=== PATIENT | female | born 1940 | race Caucasian/White ===

== ENCOUNTER 2023-07-03 17:19 | Inpatient (IN) | payer MEDICARE, OTHER, SELFPAY ==
[2023-07-03 14:38] VITALS: BP 155/88
[2023-07-03] MEDS: FLAGYL 500 MG 100 IV (15:24)
[2023-07-03] MEDS: ROCEPHIN 2000 MG IV (15:24)
[2023-07-03 15:27] LABS: % Basophils 0.4 % (0-2); % Eosinophils 0.3 % (0-6); % Immature Granulocytes 0.6 % (0-0.5); % Lymphocytes 9.1 % (20.5-51.1); % Monocytes 7.3 % (1.7-9.3); % Neutrophils 82.3 % (42.2-75.2); Absolute Immature Granulocytes 0.1 10^3/uL (0-0.05); Absolute Lymphocytes 0.8 10^3/uL (1.2-3.4); Absolute Monocytes 0.7 10^3/uL (0.1-0.6); Absolute Neutrophils 7.4 10^3/uL (1.4-6.5); Hematocrit 33.1 % (37.0-47.0); Hemoglobin 11.9 g/dL (12.0-16.0); Mean Corpuscular Hgb 32.2 pg (27.0-31.0); Mean Corpuscular Volume 89.7 fL (81.0-99.0); Mean Platelet Volume 9.4 fL (7.4-10.4); Nucleated Red Blood Cells % 0 %; Platelet Count 276 10^3/uL (130-400); Red Blood Cell Count 3.69 10^6/uL (4.20-5.40); Red Cell Dist. Width 12.7 % (11.5-14.5)
[2023-07-03 15:35] LABS: Erythrocyte Sed Rate 59 mm/hour (0-20)
[2023-07-03 15:45] LABS: Blood Urea Nitrogen 27 mg/dl (7-17); Calcium 8.9 mg/dl (8.4-10.2); Carbon Dioxide 23 mmol/L (22-30); Chloride 93 mmol/L (98-107); Glucose 106 mg/dl (70-99); Potassium 3.7 mmol/L (3.5-5.1); Sodium 126 mmol/L (135-145); eGFR > 60.00
--- NOTE | 2023-07-03 16:41 | ED.SKININJ ---
HPI-Injury
General
Chief Complaint: Bite
Source: patient and family
Exam Limitations: none
Time Seen by Provider: 07/03/23 14:56
Nursing documentation reviewed up to this point in time: agreed with
Travel History
Have you had any contact with someone who has COVID-19?: No
Do you have any symptoms of coronavirus? Fever > 100 degrees, chills, cough, shortness of breath, sore throat, loss of taste or smell, muscle aches, or headache?: No
History of Present Illness-Injury
Is this injury a work related problem?: No
Is pt an associate of [facility]?: No
Initial Injury comments:
83-year-old female with past medical history of congestive heart failure hypertension hyperlipidemia anxiety previous stroke presenting to the emergency department today with concerns of ongoing swelling redness and discomfort to the right wrist.
She was bit by her cat 19 days ago initially treated with Augmentin no improvement saw her primary care doctor 4 days ago for ongoing redness and swelling started on doxycycline and clindamycin has been taking this over the past 4 days without any
improvement worsening redness and swelling over the past day or so denies fevers but has had increasing swelling and discomfort. Denies nausea vomiting
Past History
Past History
ED Past Medical History: CHF, CVA, GERD, HTN, Hypercholesterolemia, Valvular disease (Mitral regurgitation), Hypothyroidism and Other (spinal stenosis, herniated L2-3-4-5, IBS, osteoarthritis,)
ED Past Surgical History: Bowel resection (Small bowel resection), Cholecystectomy, Gynecological (Hysterectomy), Orthopedic (L2-L5 laminectomy, left wrist ganglion cyst, L2-L4 fusion) and Other (Hemorrhoidectomy, left endarterectomy, excision of
basal cell carcinoma nose 2000, Unbilical hernia)
Social History
Tobacco: Non-smoker
Alcohol: None
Personal:
Living: with family (son lives with her)
Employment: Retired
Family History
Family History: Other (Noncontributory)
Review of Systems
Review of Systems
Allergies reviewed?: Yes
All Other Systems: ROS reviewed and negative except as documented in HPI and ROS
Phy Exam
Physical Exam
Physical Exam:
GENERAL: Alert , in no apparent distress
EYE: pupils equal and reactive
NECK: Supple, no significant adenopathy.
ENT: o/p clr, mmm.
CARDIAC: Regular rate and rhythm .
LUNGS: Clear breath sounds bilaterally, no acute respiratory distress, no wheezes/rales/rhonchi
ABDOMEN: Soft, without focal tenderness, no r/g, no cvat
NEUROLOGICAL: Alert and oriented, no focal neuro deficits
SKIN: Redness and swelling without fluctuance or induration to the right wrist and into the forearm roughly half of the forearm on th the ulnar aspect does cross the joint to the hand no obvious breaks in the skin e and dry, skin intact.
MUSCULOSKELETAL: No edema, well perfused.
PSYCH: Normal and appropriate interaction.
Course
Orders/Labs/Results
Orders:
Orders
07/03/23 15:05
CefTRIAXone [Rocephin] 1,000 mg IV NOW STA
CR Wrist - Right Min 3 Views Urgent
Comment:
Reason For Exam: infection for 2 weeks
07/03/23 15:07
CefTRIAXone [Rocephin] 2,000 mg IV NOW STA
MetroNIDAZOLE 500 MG/100 ML [Flagyl 500 mg] 100 ml IV NOW
07/03/23 15:08
Splints/Slings/Crut- Treatment ONCE
Location: Right
07/03/23 15:18
BMP [Basic Metabolic Panel] Urgent
CBC/With Diff [Complete Blood Count/With Diff] Urgent
CRP [C-Reactive Protein] Urgent
ESR [Erythrocyte Sed Rate] Urgent
07/03/23 16:18
Blood Culture Q30M
GERMÁN Source: Blood/Venous
Specimen Description:
Blood Culture Q30M
GERMÁN Source: Blood/Venous
Specimen Description:
07/03/23 16:37
0.9% Sodium Chloride 1000 ml [Nss] 1,000 ml IV BOLUS
Abnormal Lab Results
07/03/23
15:18
RBC 3.69 L 10^6/uL
(4.20-5.40)
Hgb 11.9 L g/dL
(12.0-16.0)
Hct 33.1 L %
(37.0-47.0)
MCH 32.2 H pg
(27.0-31.0)
Abs Immat Gran (auto) 0.1 H 10^3/uL
(0-0.05)
Absolute Neuts (auto) 7.4 H 10^3/uL
(1.4-6.5)
Absolute Lymphs (auto) 0.8 L 10^3/uL
(1.2-3.4)
Absolute Monos (auto) 0.7 H 10^3/uL
(0.1-0.6)
Immature Gran % 0.6 H %
(0-0.5)
Neutrophils % 82.3 H %
(42.2-75.2)
Lymphocytes % 9.1 L %
(20.5-51.1)
ESR 59 H mm/hour
(0-20)
Sodium 126 L mmol/L
(135-145)
Chloride 93 L mmol/L
(98-107)
BUN 27 H mg/dl
(7-17)
Glucose 106 H mg/dl
(70-99)
C-Reactive Protein 70.20 H mg/L
(0.0-10.00)
07/03/23 15:18
07/03/23 15:18
Vital Signs
Initial and Last Documented VS:
Initial Vital Signs
Temp Pulse Resp BP Pulse Ox
98.5 F 84 18 155/88 95
07/03/23 14:38 07/03/23 14:38 07/03/23 14:38 07/03/23 14:38 07/03/23 14:38
Last Documented Vital Signs
Temp Pulse Resp BP Pulse Ox
98.5 F 84 18 155/88 95
07/03/23 14:38 07/03/23 14:38 07/03/23 14:38 07/03/23 14:38 07/03/23 14:38
MDM/Problems Addressed
MDM/Problems Addressed:
83-year-old female presenting to the emergency department today with concerns of worsening redness and swelling despite multiple antibiotic treatments at home after being bit by a cat. Here she is generally well-appearing in no acute distress
normal vital signs does have significant redness and swelling to the right wrist plan to start IV antibiotics and bring in due to failed outpatient antibiotics. Labs were obtained which did show a low sodium level was started on fluids.
Otherwise\\admitted in stable condition
*Critical Care Note
Total Time (30-74mins, 75-104mins- exclusive of procedures): Not Applicable
ED Attending Note
-
Portions of this chart may have been created with voice recognition software.� Occasional wrong word or��sound alike� substitutions may have occurred due to the inherent limitations of voice recognition software.
Discharge Plan
Departure
Patient Disposition: Admit
Date of Disposition: 07/03/23
Time of Disposition: 16:43
Admit to: Med/Surg
Admit to doctor: Rozina
Presentation/result/management discussed w/ accepting MD/DO: Hospitalist
Patient with high blood pressure during this ER visit?: No
Condition: Good
Covid-19: Not Applicable
Discharge Problem:
Cat bite of right forearm with infection
Prescriptions:
No Action
famotidine 40 MG tablet
40 mg PO DAILY
aspirin 81 MG tablet,delayed release (DR/EC)
81 mg PO DAILY
amitriptyline 50 MG tablet
50 mg PO HS
alprazolam 0.25 MG tablet
0.25 mg PO BID
Patient Comments:
1-2X DAY
pantoprazole 40 MG tablet,delayed release (DR/EC)
40 mg PO DAILY
labetalol 300 MG tablet
450 mg PO BID
Patient Comments:
1-2X DAY
losartan [Cozaar] 100 MG tablet
100 mg PO DAILY
gabapentin 300 MG capsule
300 mg PO TID
polyethylene glycol 3350 17 GRAMS powder in packet
17 grams PO DAILY
levothyroxine 25 MCG capsule
25 mcg PO DAILY
cyanocobalamin (vitamin B-12) 1,000 MCG tablet
1,000 mcg PO DAILY
ferrous sulfate [Feosol] 325 MG tablet
325 mg PO DAILY
doxycycline hyclate 100 MG capsule
100 mg PO Q12 Qty: 8 0RF
Patient Comments:
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
metolazone 2.5 mg Tablet
2.5 mg PO WE
atorvastatin [Lipitor] 80 mg Tablet
80 mg PO QPM
torsemide 20 mg Tablet
40 mg PO DAILY
clindamycin HCl 300 mg Capsule
300 mg PO TID
hydrocodone-acetaminophen 10-325 mg Tablet
1 tab PO TIDPRN PRN (Reason: severe pain)
cholecalciferol (vitamin D3) [Vitamin D3] 25 mcg (1,000 unit) Tablet
25 mcg PO DAILY
potassium chloride 20 mEq Tablet Extended Release
20 meq PO DAILY
Referrals:
Hebert Rogers MD [Family Provider] -
Interventions
Interventions:
*Risk Screen - Suicide Last Done: 07/03/23 15:43
*General Assessment Last Done: 07/03/23 14:38
*Neglect/Abuse Screening Last Done: 07/03/23 15:43
*ED COVID-19 Vaccine History Last Done: 07/03/23 14:38
ED-Skin Assessment Last Done: 07/03/23 15:42
--- NOTE | 2023-07-03 17:18 | HPS.HSE ---
Family Physician
-
Family Physician: Hebert Rogers
Chief Complaint
-
wrist swelling and pain
History of Present Illness
83-year-old female with past medical history of diastolic heart failure, hypertension, chronic normocytic anemia, CVA, GERD, hypercholesterolemia, hypothyroidism, spinal stenosis, IBS, small bowel resection presenting with ongoing swelling and
redness and discomfort of the right wrist. She was bit by her cat 19 days ago initially treated with course of Augmentin without any improvement and saw her primary care physician 4 days ago persistent symptoms so she was started on doxycycline and
clindamycin which she has been taking for the past 4 days with worsening of redness and swelling over the past day. Denies fevers or chills. Denies any discharge. Denies nausea or vomiting.
She did develop the feeling that her throat was closing up while on Augmentin.
She has also been having some chest congestion and cough over the past few days attributed to viral URI. She denies any shortness of breath or chest pain.
She denies smoking alcohol.
Medical History
Past Medical History
Past Medical History: Reports Other (diastolic heart failure, hypertension, chronic normocytic anemia, CVA, GERD, hypercholesterolemia, hypothyroidism, spinal stenosis, IBS, small bowel resection)
Past Surgical History: Reports Other (Bowel resection (Small bowel resection), Cholecystectomy, Gynecological (Hysterectomy), Orthopedic (L2-L5 laminectomy, left wrist ganglion cyst, L2-L4 fusion) and Other (Hemorrhoidectomy, left endarterectomy,
excision of basal cell carcinoma nose 2000, Unbilical hernia))
Social History
Tobacco: Non-smoker
Alcohol: None
Drug: None
Family History
Family History: Not pertinent
Allergies / Home Medications
Allergies reflects when Allergies were last updated in [employer].
Home Medications with original date entered in [facility]
Allergy/Medication List:
Allergies
Allergy/AdvReac Type Severity Reaction Status Date / Time
adhesive Allergy Rash Verified 07/03/23 14:40
erythromycin base Allergy Burning, Verified 07/03/23 14:40
[Erythromycin Base] itchy eyes
mold Allergy ITCHY EYES Verified 07/03/23 14:40
Penicillins Allergy Unknown Verified 07/03/23 14:40
polymyxin B Allergy Burning of Verified 07/03/23 14:40
eyes
SEASONAL Allergy ITCHY Uncoded 07/03/23 14:40
EYES,RUNNY
NOSE
Home Medications
alprazolam 0.25 mg tablet 0.25 mg PO BID anxiety 06/13/11
amitriptyline 50 mg tablet 50 mg PO HS Sleep 06/13/11
aspirin 81 mg tablet,delayed release 81 mg PO DAILY Blood clot prevention/tx 06/13/11
famotidine 40 mg tablet 40 mg PO DAILY Gastrointestinal issue 06/13/11
labetalol 300 mg tablet 450 mg PO BID Blood pressure 06/13/11
pantoprazole 40 mg tablet,delayed release 40 mg PO DAILY Gastrointestinal issue 06/13/11
losartan 100 mg tablet (Cozaar) 100 mg PO DAILY Blood pressure 07/07/16
gabapentin 300 mg capsule 300 mg PO TID Neurological Condition 10/01/18
cyanocobalamin (vitamin B-12) 1,000 mcg tablet 1,000 mcg PO DAILY Supplement 07/16/20
ferrous sulfate 325 mg (65 mg iron) tablet (Feosol) 325 mg PO DAILY Supplement 07/16/20
levothyroxine 25 mcg capsule 25 mcg PO DAILY Thyroid 07/16/20
polyethylene glycol 3350 17 gram oral powder packet 17 grams PO DAILY Congestion 07/16/20
doxycycline hyclate 100 mg capsule 100 mg PO Q12 #8 caps 07/18/20
atorvastatin 80 mg tablet (Lipitor) 80 mg PO QPM 07/03/23
cholecalciferol (vitamin D3) 25 mcg (1,000 unit) tablet (Vitamin D3) 25 mcg PO DAILY 07/03/23
clindamycin HCl 300 mg capsule 300 mg PO TID 07/03/23
hydrocodone 10 mg-acetaminophen 325 mg tablet 1 tab PO TIDPRN PRN severe pain 07/03/23
metolazone 2.5 mg tablet 2.5 mg PO WE 07/03/23
potassium chloride 20 mEq tablet,extended release 20 meq PO DAILY 07/03/23
torsemide 20 mg tablet 40 mg PO DAILY 07/03/23
Review of Systems
-
History Source: Patient
A 12 point ROS was completed and negative except as noted: Yes
Constitutional: Reports No Symptoms
EENT: Reports No Symptoms
Respiratory: Reports No Symptoms
Cardiac: Reports No Symptoms
Abdomen/GI: Reports No Symptoms
: Reports No Symptoms
Musculoskeletal: Reports No Symptoms
Skin: Reports See HPI
Neurological: Reports No Symptoms
Endocrine: Reports No Symptoms
Hematologic/Lymphatic: Reports No Symptoms
Psych: Reports No Symptoms
Physical Exam
Vital Signs
Vital Signs
Temp Pulse Resp BP Pulse Ox
98.5 F 84 18 155/88 95
07/03/23 14:38 07/03/23 14:38 07/03/23 14:38 07/03/23 14:38 07/03/23 14:38
Physical Exam
General: Well Developed, Well Nourished and No Apparent Distress
HEENT: NormoCephalic, Moist mucous membranes and Atraumatic
Respiratory: Clear
Cardiac: S1/S2 and Regular Rhythm; No Murmur or Rub
GI: Soft, Non Tender, Non Distended and Normal Bowel Sounds; No Organomegaly
Rectal: Deferred by Provider
Musculoskeletal: No Clubbing, No Cyanosis and No Edema
Skin: Other (right wrist tenderness, erythema and swelling ); No Rash
Neuro: Nonfocal/grossly intact
Laboratory Results
-
07/03/23 15:18
07/03/23 15:18
Data Reviewed
-
Lab Data: Labs Reviewed by me
Old Records: Reviewed
Impression/Plan
-
IMPRESSION:
PLAN:
# Right wrist cellulitis secondary to cat bite
-Wrist x-ray pending
-Blood cultures pending
-IV fluids given in ER
-Cefepime and Flagyl given penicillin allergy
# Congestion secondary to viral URI
-benzonatate as needed
# Chronic asymptomatic hyponatremia secondary to metolazone
-Fluid restriction 40 ounces
Chronic HFpEF
-Continue torsemide
-Continue metolazone
Essential hypertension
-Continue losartan, labetalol
History of CVA status post carotid endarterectomy
-Continue aspirin, statin
GERD
-Continue Protonix, Pepcid
Hypercholesterolemia
Hypothyroidism
-Continue levothyroxine
Chronic normocytic anemia
-Continue iron supplement
Spinal stenosis
-Continue Vicodin, gabapentin
IBS
History of small bowel resection
Anxiety/depression
-Continue Xanax, amitriptyline
Full code
DVT prophylaxis�heparin
Cardiac diet
[2023-07-03 18:31] VITALS: BMI 22.4
[2023-07-03 18:32] VITALS: BP 176/93; BMI 23.0
[2023-07-03] MEDS: HEPARIN 5000 UNITS SC (20:07)
[2023-07-03] MEDS: LIPITOR 80 MG PO (20:07)
[2023-07-03] MEDS: TRANDATE 450 MG PO (20:08)
[2023-07-03] MEDS: XANAX 0.25 MG PO (20:10)
[2023-07-03] MEDS: ROBITUSSIN 100 MG PO (20:26)
[2023-07-03] MEDS: NSS 1000 IV (20:26)
[2023-07-03] MEDS: ELAVIL 50 MG PO (22:23)
[2023-07-03] MEDS: MAXIPIME 1000 MG IV (22:23)
[2023-07-03] MEDS: STERILE WATER FOR INJECTION 10 ML IV (22:23)
[2023-07-03] MEDS: NEURONTIN PO ×2 (22:23→22:25)
[2023-07-03 23:08] VITALS: BP 159/65
[2023-07-04] MEDS: FLAGYL 500 MG 100 IV ×4 (00:43→23:53)
[2023-07-04] MEDS: NORCO 7.5/325 1 TABLET PO ×2 (01:23→08:16)
[2023-07-04 06:00] VITALS: BMI 22.4
[2023-07-04 06:08] LABS: % Basophils 0.4 % (0-2); % Eosinophils 0.3 % (0-6); % Immature Granulocytes 0.6 % (0-0.5); % Lymphocytes 17.4 % (20.5-51.1); % Monocytes 10.2 % (1.7-9.3); % Neutrophils 71.1 % (42.2-75.2); Absolute Lymphocytes 1.2 10^3/uL (1.2-3.4); Absolute Monocytes 0.7 10^3/uL (0.1-0.6); Absolute Neutrophils 4.8 10^3/uL (1.4-6.5); Hematocrit 31.6 % (37.0-47.0); Hemoglobin 11.1 g/dL (12.0-16.0); Mean Corp Hgb Conc. 35.1 g/dL (33.0-37.0); Mean Corpuscular Hgb 31.7 pg (27.0-31.0); Mean Corpuscular Volume 90.3 fL (81.0-99.0); Mean Platelet Volume 9.9 fL (7.4-10.4); Nucleated Red Blood Cells % 0 %; Platelet Count 272 10^3/uL (130-400); Red Cell Dist. Width 12.5 % (11.5-14.5); White Blood Cell Count 6.8 10^3/uL (4.8-10.8)
[2023-07-04] MEDS: SYNTHROID 25 MCG PO (06:15)
[2023-07-04 06:37] LABS: ALT (SGPT) < 10 U/L (0-35); AST (SGOT) 20 U/L (14-36); Albumin 3.1 g/dl (3.5-5.0); Alkaline Phosphatase 112 U/L (38-126); Blood Urea Nitrogen 22 mg/dl (7-17); Calcium 8.8 mg/dl (8.4-10.2); Carbon Dioxide 22 mmol/L (22-30); Chloride 96 mmol/L (98-107); Estimated Creatinine Clearance 39 ml/min; Glucose 95 mg/dl (70-99); Potassium 3.6 mmol/L (3.5-5.1); Sodium 131 mmol/L (135-145); Total Bilirubin 0.4 mg/dl (0.2-1.3); Total Protein 5.8 g/dl (6.3-8.2); eGFR > 60.00
[2023-07-04 07:30] VITALS: BP 172/84
[2023-07-04] MEDS: DEMADEX 40 MG PO (08:03)
[2023-07-04] MEDS: XANAX 0.25 MG PO ×2 (08:03→20:14)
[2023-07-04] MEDS: NEURONTIN 300 MG PO ×2 (08:03→17:34)
[2023-07-04] MEDS: PROTONIX 40 MG PO (08:03)
[2023-07-04] MEDS: PEPCID PO ×2 (08:03→08:23)
[2023-07-04] MEDS: TRANDATE 450 MG PO ×2 (08:04→20:14)
[2023-07-04] MEDS: ASPIR LOW (ENTERIC COATED) 81 MG PO (08:04)
[2023-07-04] MEDS: VITAMIN B-12 1000 MCG PO (08:05)
[2023-07-04] MEDS: COZAAR 100 MG PO (08:05)
[2023-07-04] MEDS: KCL PO ×2 (08:05→08:29)
[2023-07-04] MEDS: VITAMIN D3 (cholecalciferol) 25 MCG PO (08:05)
[2023-07-04] MEDS: FEOSOL 325 MG PO (08:05)
[2023-07-04] MEDS: HEPARIN 5000 UNITS SC ×2 (08:06→20:14)
[2023-07-04] MEDS: MIRALAX PO (08:12)
[2023-07-04] MEDS: ROBITUSSIN 100 MG PO ×2 (08:16→17:39)
--- NOTE | 2023-07-04 09:07 | W.PN.HOSP.TC ---
Today's Communication/Plan
-
Continue cefepime and Flagyl for now
Continue with splint with continued attempts at arm elevation
Repeat CRP
CBC in a.m. if continues improvement outpatient planning/Bactrim or Levaquin/ doxycycline
Assessment / Plan
Assessment / Plan
83-year-old female with past medical history of diastolic heart failure, hypertension, chronic normocytic anemia, CVA, GERD, hypercholesterolemia, hypothyroidism, spinal stenosis, IBS, small bowel resection presenting with ongoing swelling and
redness and discomfort of the right wrist.� She was bit by her cat 19 days ago initially treated with course of Augmentin without any improvement and saw her primary care physician 4 days ago persistent symptoms so she was started on doxycycline and
clindamycin which she has been taking for the past 4 days with worsening of redness and swelling over the past day.� Denies fevers or chills.� Denies any discharge.� Denies nausea or vomiting.
She did develop the feeling that her throat was closing up while on Augmentin.
She has also been having some chest congestion and cough over the past few days attributed to viral URI.� She denies any shortness of breath or chest pain.
She denies smoking alcohol.
�Right wrist cellulitis secondary to cat bite
-Wrist x-ray only showing soft tissue swelling no foreign body and no evidence of any bone involvement or osteomyelitis/Compared to wrist x-ray that was performed on 14 June unchanged
-Chondrocalcinosis noted
-Blood cultures pending
-IV fluids given in ER
-CRP elevated 70 white count normal
-Cefepime and Flagyl given penicillin allergy/symptoms improved within last 24 hours/will continue for at least another 24/repeat CRP
# Congestion secondary to viral URI
-benzonatate as needed
# Chronic asymptomatic hyponatremia secondary to metolazone
-Fluid restriction 40 ounces
Chronic HFpEF
-Continue torsemide
-Continue metolazone
Essential hypertension
-Continue losartan, labetalol
History of CVA status post carotid endarterectomy
-Continue aspirin, statin
GERD
-Continue Protonix, Pepcid
Hypercholesterolemia
Hypothyroidism
-Continue levothyroxine
Chronic normocytic anemia
-Continue iron supplement
Spinal stenosis
-Continue Vicodin, gabapentin
IBS
History of small bowel resection
Anxiety/depression
-Continue Xanax, amitriptyline
Full code
DVT prophylaxis�heparin
Cardiac diet
Anticipated Discharge: Within 24 hours
Subjective/Interval History
-
Date of Service: July 04, 2023
Right forearm and wrist feel a little better she has an splint
Objective Data
-
Labs:
Laboratory Results
07/04/23
05:25
WBC 6.8
Hgb 11.1 L
Hct 31.6 L
Plt Count 272
Sodium 131 L
Potassium 3.6
Chloride 96 L
Carbon Dioxide 22
BUN 22 H
Creatinine 0.6
Glucose 95
Calcium 8.8
Total Bilirubin 0.4
AST 20
ALT < 10
Alkaline Phosphatase 112
Vital Signs:
Vital Signs
Temp Pulse Resp BP Pulse Ox
98.2 F 89 16 172/84 100
07/04/23 07:30 07/04/23 08:05 07/04/23 07:30 07/04/23 08:05 07/04/23 07:30
I&O
07/03/23 07/04/23 07/05/23
06:59 06:59 06:59
Intake Total 980 / 980
Balance 980 / 980
Review of Systems
-
History Source: Patient
Musculoskeletal: Reports Joint Pain, Joint Swelling, Muscle Pain and Muscle Stiffness
Physical Exam
-
General: Well Developed
HEENT: Normocephalic
Respiratory: Clear to Auscultation
Cardiac: Regular Rhythm
GI: Soft
Musculoskeletal: Edema, Right Upper Extrem (Splint was removed over the area just inferior to the volar aspect of her right forearm and both right wrist. Induration is palpated has been demarcated by magic marker and seems to be nava)
Skin: Warm and Rash
Neuro: Awake
Data Reviewed
-
Total Time Spent with Patient (in minutes): 45
Labs: Labs Reviewed by me (CRP is 70/white count is normal 6.8/hemoglobin 11.1/sodium trending up to 131 with a chloride of 96 also trending up creatinine 0.6)
--- NOTE | 2023-07-04 10:10 | CM ---
CM following re: discharge planning.
Reviewed pt's chart, met with pt and 2 sons at bedside.
Pt is an 83 year old female, admitted with primary dx of Cat bite cellulitis.
Pt reports she lives with 2 sons in a condo, no steps to enter, has 2 supportive sons. Pt described herself as independent in all areas [employer]APPING [employer], has a cane and a walker and uses them as needed, was going for outpatient PT/OT to a local outpatient
therapy center and pt preferred to resume outpatient PT/OT upon the discharge. Pt will need a script for outpatient PT/OT. No SNF history.
PCP: Hebert Rogers
Pharmacy: [facility]
D/C plan: home with resumptions of outpatient PT/OT and family support. Sons to transport at discharge.
CM will follow with discharge plan updates as hospitalization progresses
[2023-07-04] MEDS: STERILE WATER FOR INJECTION 10 ML IV ×2 (10:44→21:38)
[2023-07-04] MEDS: MAXIPIME 1000 MG IV ×2 (10:52→21:37)
[2023-07-04] MEDS: NORCO 5/325 2 TABLET PO ×2 (14:49→20:15)
[2023-07-04 16:00] VITALS: BP 166/78
[2023-07-04] MEDS: LIPITOR 80 MG PO (17:34)
[2023-07-04] MEDS: NEURONTIN PO (21:37)
[2023-07-04] MEDS: ELAVIL 50 MG PO (21:38)
[2023-07-04 23:15] VITALS: BP 140/59
[2023-07-05 06:00] VITALS: BMI 22.3
[2023-07-05] MEDS: SYNTHROID 25 MCG PO (06:03)
[2023-07-05 07:00] VITALS: BP 174/84
[2023-07-05 07:05] LABS: Hematocrit 33.3 % (37.0-47.0); Hemoglobin 11.6 g/dL (12.0-16.0); Mean Corp Hgb Conc. 34.8 g/dL (33.0-37.0); Mean Corpuscular Volume 91.7 fL (81.0-99.0); Mean Platelet Volume 9.8 fL (7.4-10.4); Platelet Count 306 10^3/uL (130-400); Red Blood Cell Count 3.63 10^6/uL (4.20-5.40); Red Cell Dist. Width 12.6 % (11.5-14.5); White Blood Cell Count 8.6 10^3/uL (4.8-10.8)
[2023-07-05] MEDS: NEURONTIN 300 MG PO ×2 (08:02→15:18)
[2023-07-05] MEDS: MIRALAX 17 GRAMS PO (08:02)
[2023-07-05] MEDS: TRANDATE 450 MG PO ×2 (08:02→22:02)
[2023-07-05] MEDS: ASPIR LOW (ENTERIC COATED) 81 MG PO (08:02)
[2023-07-05] MEDS: PROTONIX 40 MG PO (08:02)
[2023-07-05] MEDS: XANAX 0.25 MG PO ×2 (08:03→20:01)
[2023-07-05] MEDS: VITAMIN D3 (cholecalciferol) 25 MCG PO (08:03)
[2023-07-05] MEDS: PEPCID 20 MG PO (08:03)
[2023-07-05] MEDS: COZAAR 100 MG PO (08:03)
[2023-07-05] MEDS: KCL 20 MEQ PO (08:04)
[2023-07-05] MEDS: VITAMIN B-12 1000 MCG PO (08:04)
[2023-07-05] MEDS: HEPARIN 5000 UNITS SC ×2 (08:04→20:01)
[2023-07-05] MEDS: FLAGYL 500 MG 100 IV ×3 (08:04→23:50)
[2023-07-05] MEDS: FEOSOL 325 MG PO (08:04)
[2023-07-05] MEDS: DEMADEX 40 MG PO (08:04)
[2023-07-05] MEDS: NORCO 5/325 2 TABLET PO ×3 (08:07→21:59)
--- NOTE | 2023-07-05 09:15 | W.PN.HOSP.TC ---
Today's Communication/Plan
-
Continue cefepime and Flagyl for now
Apply wound dressing to I&D site
Culture sent of abscess drainage
Assessment / Plan
Assessment / Plan
83-year-old female with past medical history of diastolic heart failure, hypertension, chronic normocytic anemia, CVA, GERD, hypercholesterolemia, hypothyroidism, spinal stenosis, IBS, small bowel resection presenting with ongoing swelling and
redness and discomfort of the right wrist.� She was bit by her cat 19 days ago initially treated with course of Augmentin without any improvement and saw her primary care physician 4 days ago persistent symptoms so she was started on doxycycline and
clindamycin which she has been taking for the past 4 days with worsening of redness and swelling over the past day.� Denies fevers or chills.� Denies any discharge.� Denies nausea or vomiting.
She did develop the feeling that her throat was closing up while on Augmentin.
She has also been having some chest congestion and cough over the past few days attributed to viral URI.� She denies any shortness of breath or chest pain.
She denies smoking alcohol.
�Right wrist cellulitis secondary to cat bite/underwent incision and purulent drainage of site/culture of abscess sent July 05
-Wrist x-ray only showing soft tissue swelling no foreign body and no evidence of any bone involvement or osteomyelitis/Compared to wrist x-ray that was performed on 14 June unchanged
-Chondrocalcinosis noted
-Blood cultures remain no growth
-IV fluids given in ER
-CRP elevated 70 white count normal/CRP down to 58
-Cefepime and Flagyl given penicillin allergy/does not necessarily need to wait for wound culture results seem to be responding she wants to stay 1 more day after I&D
-Wound dressing applied
# Congestion secondary to viral URI
-benzonatate as needed
# Chronic asymptomatic hyponatremia secondary to metolazone
-Fluid restriction 40 ounces
Chronic HFpEF
-Continue torsemide
-Continue metolazone
Essential hypertension
-Continue losartan, labetalol
History of CVA status post carotid endarterectomy
-Continue aspirin, statin
GERD
-Continue Protonix, Pepcid
Hypercholesterolemia
Hypothyroidism
-Continue levothyroxine
Chronic normocytic anemia
-Continue iron supplement
Spinal stenosis
-Continue Vicodin, gabapentin
IBS
History of small bowel resection
Anxiety/depression
-Continue Xanax, amitriptyline
Full code
DVT prophylaxis�heparin
Cardiac diet
Anticipated Discharge: Within 24 hours
Subjective/Interval History
-
Date of Service: July 05, 2023
Continue pain referred to the under aspect of right forearm above the wrist now with a area of fluctuance and induration that is raised
Objective Data
-
Labs:
Laboratory Results
07/05/23
06:36
WBC 8.6
Hgb 11.6 L
Hct 33.3 L
Plt Count 306
Vital Signs:
Vital Signs
Temp Pulse Resp BP Pulse Ox
97.7 F 74 19 174/84 98
07/05/23 07:00 07/05/23 07:00 07/05/23 07:00 07/05/23 07:00 07/05/23 07:00
I&O
07/04/23 07/05/23 07/06/23
06:59 06:59 06:59
Intake Total 980 / 980 1740 / 1740
Balance 980 / 980 1740 / 1740
Review of Systems
-
History Source: Patient
Respiratory: Reports No Symptoms
Cardiac: Reports No Symptoms
Abdomen/GI: Reports No Symptoms
Musculoskeletal: Reports Joint Pain, Joint Swelling and Muscle Pain
Physical Exam
-
General: Well Developed
HEENT: Normocephalic
Respiratory: Clear to Auscultation
Cardiac: Regular Rhythm
Musculoskeletal: Edema, Right Upper Extrem (Under aspect of right forearm above wrist with raised area of fluctuance now/needle puncture of abscess sent to lab for culture)
Neuro: Awake
Psych: Calm
Data Reviewed
-
Total Time Spent with Patient (in minutes): 56
Labs: Labs Reviewed by me
[2023-07-05] MEDS: STERILE WATER FOR INJECTION 10 ML IV ×2 (10:08→22:00)
[2023-07-05] MEDS: MAXIPIME 1000 MG IV ×2 (10:08→22:02)
--- NOTE | 2023-07-05 10:18 | PTCARENOTE ---
right FA abscess draining, WC sent. sterile dry dressing applied.
[2023-07-05 15:00] VITALS: BP 141/74
[2023-07-05] MEDS: ROBITUSSIN 100 MG PO ×2 (15:24→22:16)
[2023-07-05] MEDS: LIPITOR 80 MG PO (17:37)
--- NOTE | 2023-07-05 19:59 | PTCARENOTE ---
Addendum entered by Gabriela Valentin RN 07/05/23 21:57:
Pt's BP 175/95, HR 100. LILIAM Herr notified. Refer to MAR for 450mg Labetalol administration
Original Note:
Pt's BP 107/73, HR 104. Pt offers no complaints at this time. Notified LILIAM Herr of 450mg Labetalol due at 1999 with no parameters listed. Instructed to hold on Labetalol administration and recheck BP at 2200.
[2023-07-05] MEDS: NEURONTIN PO (21:59)
[2023-07-05] MEDS: ELAVIL 50 MG PO (22:00)
[2023-07-06 01:02] VITALS: BP 127/59
[2023-07-06 05:26] LABS: Hemoglobin 10.7 g/dL (12.0-16.0); Mean Corp Hgb Conc. 35.7 g/dL (33.0-37.0); Mean Corpuscular Hgb 32.1 pg (27.0-31.0); Mean Corpuscular Volume 90.1 fL (81.0-99.0); Mean Platelet Volume 9.3 fL (7.4-10.4); Platelet Count 264 10^3/uL (130-400); Red Blood Cell Count 3.33 10^6/uL (4.20-5.40); Red Cell Dist. Width 12.7 % (11.5-14.5); White Blood Cell Count 6.6 10^3/uL (4.8-10.8)
[2023-07-06 06:00] VITALS: BMI 22.3
[2023-07-06] MEDS: SYNTHROID 25 MCG PO (06:15)
[2023-07-06 07:00] VITALS: BP 170/75
--- NOTE | 2023-07-06 08:18 | W.PN.HOSP.TC ---
Today's Communication/Plan
-
Continue IV antibiotics. ID consult.
Assessment / Plan
Assessment / Plan
Physical exam:
General: Well Developed, Well Nourished and No Apparent Distress
HEENT: Normocephalic, Atraumatic and Moist Mucous Membranes
Respiratory: Clear to Auscultation; Negative Wheezes, Rales or Rhonchi
Cardiac: Regular Rhythm and S1/S2
GI: Soft, Nontender and Nondistended
Musculoskeletal: Right forearm pain and bloody discharge and erythema. No Clubbing, No Cyanosis and No Edema
Neuro: Awake, Alert and Oriented
Psych: Calm
A/P:
�Right wrist cellulitis secondary to cat bite/underwent incision and purulent drainage of site/culture of abscess sent July 05
-Wrist x-ray only showing soft tissue swelling no foreign body and no evidence of any bone involvement or osteomyelitis/Compared to wrist x-ray that was performed on 14 June unchanged--> although overall x-rays have relatively low sensitivity.
-Chondrocalcinosis noted
-Blood cultures remain no growth
-IV fluids given in ER
-CRP elevated 70 white count normal/CRP down to 58, from 70
-Cefepime and Flagyl given penicillin allergy
-Status post drain by needle at bedside yesterday on 07/05, pending cultures
-Wound dressing applied
-ID consult
# Congestion secondary to viral URI
-benzonatate as needed
# Chronic asymptomatic hyponatremia secondary to metolazone
-Fluid restriction 40 ounces
Chronic HFpEF
-Continue torsemide
-Continue metolazone
Essential hypertension
-Continue losartan, labetalol
History of CVA status post carotid endarterectomy
-Continue aspirin, statin
GERD
-Continue Protonix, Pepcid
Hypercholesterolemia
Hypothyroidism
-Continue levothyroxine
Chronic normocytic anemia
-Continue iron supplement
Spinal stenosis
-Continue Vicodin, gabapentin
IBS
History of small bowel resection
Anxiety/depression
-Continue Xanax, amitriptyline
Full code
DVT prophylaxis�heparin
Cardiac diet
Anticipated Discharge: 24 - 48 hours
Subjective/Interval History
-
Date of Service: July 06, 2023
Patient right arm with significant tenderness on palpation, erythema about the same as per patient report. Bloody discharge from lump on forearm. Afebrile
Objective Data
-
Labs:
Laboratory Results
07/06/23
05:15
WBC 6.6
Hgb 10.7 L
Hct 30.0 L
Plt Count 264
Vital Signs:
Vital Signs
Temp Pulse Resp BP Pulse Ox
98.2 F 60 19 170/75 96
07/06/23 07:00 07/06/23 07:00 07/06/23 07:00 07/06/23 07:00 07/06/23 07:00
I&O
07/05/23 07/06/23 07/07/23
06:59 06:59 06:59
Intake Total 1740 / 1740 820 / 820
Balance 1740 / 1740 820 / 820
Review of Systems
-
All other systems: Reviewed and negative
[2023-07-06] MEDS: DEMADEX 40 MG PO (08:57)
[2023-07-06] MEDS: XANAX 0.25 MG PO ×2 (08:57→20:08)
[2023-07-06] MEDS: KCL 20 MEQ PO (08:58)
[2023-07-06] MEDS: VITAMIN D3 (cholecalciferol) 25 MCG PO (08:58)
[2023-07-06] MEDS: ASPIR LOW (ENTERIC COATED) 81 MG PO (08:58)
[2023-07-06] MEDS: VITAMIN B-12 1000 MCG PO (08:58)
[2023-07-06] MEDS: COZAAR 100 MG PO (08:58)
[2023-07-06] MEDS: MIRALAX PO (08:58)
[2023-07-06] MEDS: FEOSOL 325 MG PO (08:58)
[2023-07-06] MEDS: PROTONIX 40 MG PO (08:58)
[2023-07-06] MEDS: HEPARIN 5000 UNITS SC ×2 (08:59→20:08)
[2023-07-06] MEDS: FLAGYL 500 MG 100 IV ×3 (08:59→23:29)
[2023-07-06] MEDS: TRANDATE 450 MG PO (08:59)
[2023-07-06] MEDS: PEPCID 20 MG PO (09:00)
[2023-07-06] MEDS: NEURONTIN 300 MG PO ×3 (09:00→22:11)
[2023-07-06] MEDS: ROBITUSSIN 100 MG PO ×2 (09:16→20:09)
[2023-07-06 10:02] LABS: Blood Urea Nitrogen 20 mg/dl (7-17); Calcium 8.6 mg/dl (8.4-10.2); Carbon Dioxide 27 mmol/L (22-30); Chloride 95 mmol/L (98-107); Estimated Creatinine Clearance 39 ml/min; Glucose 104 mg/dl (70-99); Potassium 3.6 mmol/L (3.5-5.1); Sodium 131 mmol/L (135-145); eGFR > 60.00
[2023-07-06] MEDS: STERILE WATER FOR INJECTION 10 ML IV ×2 (11:07→22:11)
[2023-07-06] MEDS: MAXIPIME 1000 MG IV ×2 (11:07→22:11)
[2023-07-06] MEDS: NORCO 5/325 2 TABLET PO ×2 (12:54→20:10)
[2023-07-06 15:00] VITALS: BP 137/75
--- NOTE | 2023-07-06 15:17 | CON.ID ---
Consultation
-
Date/Time Consultation Requested: 07/06/2023, 0955
Date/Time Consultation Performed: 07/06/2023 1520
Requesting Provider: Dr. Cesar Moore
Performing Provider: Dr. Rayna Mccarty
Reason for Consultation: Cat bite cellulitis and abscess
Chief Complaint / Past History
Chief Complaint
Right wrist pain and swelling.
History of Present Illness
83 year old female with hx HTN, CVA whose indoor pet cat bit her right wrist while playing around 06/14. She did not seek medical care until about 1 week later when right wrist pain, swelling persisted. She went to , XRAy negative fracture. She
was started ton Augmentin. After few days, Augmentin discontinued due to sensation of throat closing. Her PCP changed abx to clindamycin and doxycycline. After 4 days on abx, redness continued to progress. She came to the ED 07/03. No fever. Repeat
XRAY, stable. She was started on cefepime and po metronidazole. Small abscess noted she was lanced yesterday and sent for cx - no growth to date. Today, she reports since drainage of abscess, the redness and swelling has improved. Her cat is
uptodate with vaccine.
Past History
Additional Past Medical History:
HTN
CVA
GERD
hypothyroidism
HFpEF
IBS
spinal stenosis
small bowel resection
L2-L5 laminectomy
left carotid endarterectomy
umbilical hernia repair
Allergy History:
adhesive Allergy (Verified 07/03/23 14:40)
Rash
erythromycin base [Erythromycin Base] Allergy (Verified 07/03/23 14:40)
Burning, itchy eyes
mold Allergy (Verified 07/03/23 14:40)
ITCHY EYES
Penicillins Allergy (Verified 07/03/23 14:40)
Unknown
pollen extracts Allergy (Verified 07/03/23 18:28)
seasonal-ITCHY EYES,RUNNY NOSE
polymyxin B Allergy (Verified 07/03/23 14:40)
Burning of eyes
Medications Reviewed: Yes
Current Antibiotics:
Cefepime d4
metronidazole d4
Social History
Tobacco: Non-Smoker
Alcohol: None
Drug: None
Family History
Family History: Not Pertinent
Review of Systems
Review of Systems
General: Negative Fever, Chills or Change in Appetite
Respiratory: Negative Cough
Gasteroenterology: Other (no diarrhea); Negative Nausea or Vomiting
Genital / Urological: Negative Dysuria
Neurological: Negative Headache or Dizziness
All systems: All other systems were reviewed and were negative
Vital Signs
Temp Pulse Resp BP Pulse Ox
98.2 F 60 19 170/75 97
07/06/23 07:00 07/06/23 07:00 07/06/23 07:00 07/06/23 07:00 07/06/23 08:45
Physical Exam
Physical Exam
Constitutional: No Acute Distress
Eyes: No Conjunctival Hemorrhage and Sclera Anicteric
Pulmonary: Clear
Gastrointestinal: Soft, Non Tender and Non Distended
Extremities: Other (RUE; proximal wrist erythema extending up, which has receded from marked line; small abscess cavity with cloudy bloody fluid expressed.)
Neurological: AO x 3
Lab / Diagnostic Study Results
07/06/23 05:15
07/06/23 08:51
Abs Immat Gran (auto) 0.0 10^3/uL (0-0.05) 07/04/23 05:25
Absolute Neuts (auto) 4.8 10^3/uL (1.4-6.5) 07/04/23 05:25
Absolute Lymphs (auto) 1.2 10^3/uL (1.2-3.4) 07/04/23 05:25
Absolute Monos (auto) 0.7 10^3/uL (0.1-0.6) H 07/04/23 05:25
Absolute Basos (auto) 0.0 10^3/uL (0-0.2) 07/04/23 05:25
Immature Gran % 0.6 % (0-0.5) H 07/04/23 05:25
Neutrophils % 71.1 % (42.2-75.2) 07/04/23 05:25
Lymphocytes % 17.4 % (20.5-51.1) L 07/04/23 05:25
Monocytes % 10.2 % (1.7-9.3) H 07/04/23 05:25
Eosinophils % 0.3 % (0-6) 07/04/23 05:25
Basophils % 0.4 % (0-2) 07/04/23 05:25
ESR 59 mm/hour (0-20) H 07/03/23 15:18
C-Reactive Protein 58.70 mg/L (0.0-10.00) H 07/05/23 06:36
Microbiology Results
Micro:
07/05/23 11:19 Wound Culture - Preliminary
Abscess No growth
Gram Stain - Preliminary
07/03/23 16:18 Blood Culture - Preliminary
Blood/Venous No Growth in 48 hours- Final report to follow
07/03/23 16:18 Blood Culture - Preliminary
Blood/Venous No Growth in 48 hours- Final report to follow
07/03/23 Right wrist XRAY: diffuse medial soft tissue swelling. No subcutaneous emphysema. No radiopaque foreign body. Similar to prior examination. No periosteal reaction or bony destruction. No definite radiographic evidence to suggest
osteomyelitis. No acute fracture or dislocation.�
Assessment / Plan
# Right forearm cat-bite cellulitis with superficial small abscess
# PCN allergy; tolerating cephalosporin
Plan:
- Cellulitis appears to be improving today.
-Continue cefepime/metronidazole.
-Anticipate change to cefuroxime soon.
-Follow abscess culture (neg to date).
- Give one dose of tetanus vaccine.
[2023-07-06] MEDS: LIPITOR 80 MG PO (17:04)
[2023-07-06 20:20] VITALS: BP 102/78
[2023-07-06] MEDS: TRANDATE PO (21:32)
[2023-07-06] MEDS: ELAVIL 50 MG PO (22:11)
[2023-07-06 23:30] VITALS: BP 153/74
[2023-07-07] MEDS: SYNTHROID 25 MCG PO (05:42)
[2023-07-07 06:00] VITALS: BMI 21.9
[2023-07-07 07:00] VITALS: BP 173/93
--- NOTE | 2023-07-07 08:14 | W.PN.HOSP.TC ---
Today's Communication/Plan
-
Discharge planning today.
Assessment / Plan
Assessment / Plan
Physical exam:
General: Well Developed, Well Nourished and No Apparent Distress
HEENT: Normocephalic, Atraumatic and Moist Mucous Membranes
Respiratory: Clear to Auscultation; Negative Wheezes, Rales or Rhonchi
Cardiac: Regular Rhythm and S1/S2
GI: Soft, Nontender and Nondistended
Musculoskeletal: Right forearm pain and bloody discharge and erythema. No Clubbing, No Cyanosis and No Edema
Neuro: Awake, Alert and Oriented
Psych: Calm
A/P:
�Right wrist cellulitis secondary to cat bite/underwent incision and purulent drainage of site/culture of abscess sent July 05
-Wrist x-ray only showing soft tissue swelling no foreign body and no evidence of any bone involvement or osteomyelitis/Compared to wrist x-ray that was performed on 14 June unchanged--> although overall x-rays have relatively low sensitivity.
-Chondrocalcinosis noted
-Blood cultures remain no growth
-IV fluids given in ER
-CRP elevated 70 white count normal/CRP down to 58, from 70
-Cefepime and Flagyl given penicillin allergy
-Status post drain by needle at bedside on 07/05, negative cultures
-Wound dressing applied
-ID consult appreciated
-ID cleared her for discharge today
# Congestion secondary to viral URI
-benzonatate as needed
# Chronic asymptomatic hyponatremia secondary to metolazone
-Fluid restriction 40 ounces
Chronic HFpEF
-Continue torsemide
-Continue metolazone
Essential hypertension
-Continue losartan, labetalol
History of CVA status post carotid endarterectomy
-Continue aspirin, statin
GERD
-Continue Protonix, Pepcid
Hypercholesterolemia
Hypothyroidism
-Continue levothyroxine
Chronic normocytic anemia
-Continue iron supplement
Spinal stenosis
-Continue Vicodin, gabapentin
IBS
History of small bowel resection
Anxiety/depression
-Continue Xanax, amitriptyline
Full code
DVT prophylaxis�heparin
Cardiac diet
Anticipated Discharge: Today
Subjective/Interval History
-
Date of Service: July 07, 2023
Patient feels better today. Less erythema. Blood pressure elevated but improving with her home blood pressure medicines
Objective Data
-
Vital Signs:
Vital Signs
Temp Pulse Resp BP Pulse Ox
98.2 F 100 17 173/93 96
07/07/23 07:00 07/07/23 07:00 07/07/23 07:00 07/07/23 07:00 07/07/23 07:00
I&O
07/06/23 07/07/23 07/08/23
06:59 06:59 06:59
Intake Total 820 / 820 1060 / 1060
Balance 820 / 820 1060 / 1060
[2023-07-07] MEDS: VITAMIN B-12 1000 MCG PO (08:21)
[2023-07-07] MEDS: FEOSOL 325 MG PO (08:21)
[2023-07-07] MEDS: PEPCID 20 MG PO (08:21)
[2023-07-07] MEDS: ASPIR LOW (ENTERIC COATED) 81 MG PO (08:21)
[2023-07-07] MEDS: KCL 20 MEQ PO (08:22)
[2023-07-07] MEDS: PROTONIX 40 MG PO (08:22)
[2023-07-07] MEDS: TRANDATE PO ×2 (08:22→08:35)
[2023-07-07] MEDS: XANAX 0.25 MG PO (08:23)
[2023-07-07] MEDS: NEURONTIN 300 MG PO (08:23)
[2023-07-07] MEDS: DEMADEX 40 MG PO (08:23)
[2023-07-07] MEDS: COZAAR 100 MG PO (08:24)
[2023-07-07] MEDS: FLAGYL 500 MG 100 IV (08:24)
[2023-07-07] MEDS: HEPARIN 5000 UNITS SC (08:24)
[2023-07-07] MEDS: VITAMIN D3 (cholecalciferol) 25 MCG PO (08:24)
[2023-07-07] MEDS: MIRALAX PO (08:25)
[2023-07-07] MEDS: ROBITUSSIN 100 MG PO (08:53)
[2023-07-07] MEDS: TRANDATE 300 MG PO (09:46)
--- NOTE | 2023-07-07 09:58 | W.PN.ID1 ---
Date of Service
Date of Service: July 07, 2023
Today's Communication
Transition cefepime/metronidazole to cefuroxime 500mg po bid x 7 more days.
Assessment / Plan
# Right forearm cat-bite cellulitis with superficial small abscess
# PCN allergy; tolerating cephalosporin
Plan:
- pt up to date with tetanus vaccine (2020)
- Cellulitis continues to improve.
-Transition cefepime/metronidazole to cefuroxime 500mg po bid x 7 more days.
Chief Complaint
-: Cellulitis
Subjective / Review of Systems
Right wrist feeling better.
Vital Signs / Physical Exam
Vital Signs
Vital Signs
Temp Pulse Resp BP Pulse Ox
98.2 F 100 17 173/93 96
07/07/23 07:00 07/07/23 07:00 07/07/23 07:00 07/07/23 07:00 07/07/23 07:00
Physical Exam
Constitutional: No Acute Distress and Comfortable
Gastrointestinal: Soft, Non Tender and Non Distended
Wound: Other (right distal forearm erythema improving, abscess resolving with mild blood)
Neurological: AO x 3
Objective Data
Lab Data
Lab Results
07/06/23 05:15
07/06/23 08:51
ESR 59 mm/hour (0-20) H 07/03/23 15:18
Estimated Creat Clear 39 ml/min 07/06/23 08:51
Total Bilirubin 0.4 mg/dl (0.2-1.3) 07/04/23 05:25
AST 20 U/L (14-36) 07/04/23 05:25
ALT < 10 U/L (0-35) 07/04/23 05:25
Alkaline Phosphatase 112 U/L (38-126) 07/04/23 05:25
C-Reactive Protein 58.70 mg/L (0.0-10.00) H 07/05/23 06:36
Most recent labs reviewed.
Micro Results:
07/03/23 16:18 Blood Culture - Preliminary
Blood/Venous No Growth in 72 hours- Final report to follow
07/03/23 16:18 Blood Culture - Preliminary
Blood/Venous No Growth in 72 hours- Final report to follow
07/05/23 11:19 Wound Culture - Preliminary
Abscess No growth
Gram Stain - Preliminary
07/03/23 Right wrist XRAY: diffuse medial soft tissue swelling. No subcutaneous emphysema. No radiopaque foreign body. Similar to prior examination. No periosteal reaction or bony destruction. No definite radiographic evidence to suggest
osteomyelitis. No acute fracture or dislocation.�
[2023-07-07] MEDS: NORCO 5/325 2 TABLET PO (10:51)
[2023-07-07] MEDS: CEFTIN 500 MG PO (10:51)
[2023-07-07] MEDS: MAXIPIME IV (10:56)
[2023-07-07] MEDS: STERILE WATER FOR INJECTION IV (10:57)
--- NOTE | 2023-07-07 12:00 | W.DCSUMMARY ---
Discharge Summary
Discharge Data
Date of Admission: 07/03/23
Date of Discharge: 07/07/23
-
Pending Results: No
Hospital Course
Patient 83 years old female history of hypertension, CVA, presented to the hospital with right wrist and forearm cellulitis from cat bite. Patient was started on IV antibiotics. Although penicillin allergy reported she tolerated cephalosporin with
cefepime and Flagyl was added to her regimen. She had been tried on Augmentin and due to side effects of possible allergies switched to clindamycin and doxycycline as outpatient with no significant improvement. While inpatient x-ray stable. She
did have a small abscess and this was lanced with no culture growth. ID was consulted. Patient did well the rest of her hospital stay. Blood cultures remain no growth. ID recommended to switch to cefuroxime and complete course as outpatient. ID
cleared her for discharge today. Otherwise, patient is hemodynamically stable and afebrile. She will be discharged in stable condition today.
Discharge Plan
-
Patient Disposition: Home (Routine Discharge)
Discharge Diagnosis/Procedures: Cellulitis from cat bite
Subcutaneous abscess volar aspect of right forearm
Essential hypertension
Hypothyroidism
Diet: Regular
Activity: As tolerated
Driving Restrictions: As prior to admission
Blood Work: Please PCP to order CBC, BMP within 1 week.
Referrals:
Hebert Rogers MD [Family Provider] - in less than 1 week
Prescriptions:
New
cefuroxime axetil 500 mg Tablet
500 mg PO BID 7 Days Qty: 14 0RF
Continued
famotidine 40 MG tablet
40 mg PO DAILY
aspirin 81 MG tablet,delayed release (DR/EC)
81 mg PO DAILY
amitriptyline 50 MG tablet
50 mg PO HS
alprazolam 0.25 MG tablet
0.25 mg PO BID
Patient Comments:
1-2X DAY
pantoprazole 40 MG tablet,delayed release (DR/EC)
40 mg PO DAILY
labetalol 300 MG tablet
450 mg PO BID
Patient Comments:
1-2X DAY
losartan [Cozaar] 100 MG tablet
100 mg PO DAILY
gabapentin 300 MG capsule
300 mg PO TID
polyethylene glycol 3350 17 GRAMS powder in packet
17 grams PO DAILY
levothyroxine 25 MCG capsule
25 mcg PO DAILY AT 0700
cyanocobalamin (vitamin B-12) 1,000 MCG tablet
1,000 mcg PO DAILY
ferrous sulfate [Feosol] 325 MG tablet
325 mg PO DAILY
metolazone 2.5 mg Tablet
2.5 mg PO WE
atorvastatin [Lipitor] 80 mg Tablet
80 mg PO QPM
torsemide 20 mg Tablet
40 mg PO DAILY
hydrocodone-acetaminophen 10-325 mg Tablet
1 tab PO TIDPRN PRN (Reason: severe pain)
cholecalciferol (vitamin D3) [Vitamin D3] 25 mcg (1,000 unit) Tablet
25 mcg PO DAILY
potassium chloride 20 mEq Tablet Extended Release
20 meq PO DAILY
Discontinued
clindamycin HCl 300 mg Capsule
300 mg PO TID
doxycycline hyclate 100 MG capsule
100 mg PO Q12
Patient Comments:
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
Discharge Orders:
Discharge Patient (As Directed); Ordered 07/07/23
Ordered By: Cesar Moore
Discharge Date and Time
Discharge Date/Time: 07/07/23 14:07
--- NOTE | 2023-07-07 12:35 | CM ---
Md entered order for discharge.
Spoke with patient she said her son Paxton will drive her home.
IMM reviewed with her She said she understood and agrees with dc.
PLAN Home with no needs
== END 2023-07-07 14:07 | disposition home or self-care (01) | DRG 603 ==
LOC: 3 WEST ACU 17:19
PROVIDERS: Internal Medicine; Physician Assistant; ADMITTING PHYSICIAN Hospitalist; ATTENDING PHYSICIAN Hospitalist; CONSULT PHYSICIAN Internal Medicine Infectious Disease; EMERGENCY PHYSICIAN Emergency Medicine; FAMILY PHYSICIAN Internal Medicine
DX: L03.113 Cellulitis of right upper limb (principal); E87.1 Hypo-osmolality and hyponatremia; I50.32 Chronic diastolic (congestive) heart failure; W55.01XA Bitten by cat, initial encounter; Z86.73 Personal history of transient ischemic attack (TIA), and cerebral infarction without residual deficits; I11.0 Hypertensive heart disease with heart failure; Z88.0 Allergy status to penicillin; E03.9 Hypothyroidism, unspecified
CPT/HCPCS: 73110; 80048; 80053; 85025; 85027; 85652; 86140; 87040; 87070; 87205; 90715; 96365; 96375; 99284

== ENCOUNTER → 2023-07-29 12:06 | Outpatient (REF) | payer MEDICARE, OTHER, SELFPAY ==
[2023-07-29 13:12] LABS: % Basophils 0.8 % (0-2); % Eosinophils 1.7 % (0-6); % Immature Granulocytes 0.5 % (0-0.5); % Lymphocytes 11.1 % (20.5-51.1); % Monocytes 15.6 % (1.7-9.3); % Neutrophils 70.3 % (42.2-75.2); Absolute Basophils 0.1 10^3/uL (0-0.2); Absolute Eosinophils 0.2 10^3/uL (0-0.7); Absolute Monocytes 1.4 10^3/uL (0.1-0.6); Absolute Neutrophils 6.2 10^3/uL (1.4-6.5); Hematocrit 22.1 % (37.0-47.0); Hemoglobin 7.4 g/dL (12.0-16.0); Mean Corp Hgb Conc. 33.5 g/dL (33.0-37.0); Mean Corpuscular Hgb 31.1 pg (27.0-31.0); Mean Corpuscular Volume 92.9 fL (81.0-99.0); Mean Platelet Volume 9.9 fL (7.4-10.4); Nucleated Red Blood Cells % 0 %; Platelet Count 323 10^3/uL (130-400); Red Blood Cell Count 2.38 10^6/uL (4.20-5.40); Red Cell Dist. Width 13.6 % (11.5-14.5); White Blood Cell Count 8.8 10^3/uL (4.8-10.8)
[2023-07-29 13:18] LABS: Blood Urea Nitrogen 23 mg/dl (7-17); Calcium 8.6 mg/dl (8.4-10.2); Carbon Dioxide 27 mmol/L (22-30); Chloride 94 mmol/L (98-107); Glucose 110 mg/dl (70-99); Potassium 4.7 mmol/L (3.5-5.1); Sodium 128 mmol/L (135-145); eGFR > 60.00
== END ==
LOC: OLABPG 12:06
PROVIDERS: ATTENDING PHYSICIAN Family Medicine
DX: S72.321A Displaced transverse fracture of shaft of right femur, initial encounter for closed fracture (principal); I50.9 Heart failure, unspecified; S00.93XA Contusion of unspecified part of head, initial encounter; S01.81XA Laceration without foreign body of other part of head, initial encounter; I50.810 Right heart failure, unspecified; I34.0 Nonrheumatic mitral (valve) insufficiency; I27.20 Pulmonary hypertension, unspecified; I77.9 Disorder of arteries and arterioles, unspecified; M10.9 Gout, unspecified; I10 Essential (primary) hypertension
CPT/HCPCS: 36415; 80048; 85025

== ENCOUNTER → 2023-08-04 10:30 | Outpatient (REF) | payer MEDICARE, OTHER, SELFPAY ==
[2023-08-04 11:12] LABS: % Eosinophils 2.4 % (0-6); % Immature Granulocytes 2.6 % (0-0.5); % Lymphocytes 12.7 % (20.5-51.1); % Monocytes 12.4 % (1.7-9.3); % Neutrophils 68.9 % (42.2-75.2); Absolute Basophils 0.1 10^3/uL (0-0.2); Absolute Eosinophils 0.2 10^3/uL (0-0.7); Absolute Immature Granulocytes 0.2 10^3/uL (0-0.05); Absolute Lymphocytes 1.2 10^3/uL (1.2-3.4); Absolute Monocytes 1.1 10^3/uL (0.1-0.6); Absolute Neutrophils 6.4 10^3/uL (1.4-6.5); Hemoglobin 8.1 g/dL (12.0-16.0); Mean Corp Hgb Conc. 33.8 g/dL (33.0-37.0); Mean Corpuscular Hgb 30.2 pg (27.0-31.0); Mean Corpuscular Volume 89.6 fL (81.0-99.0); Mean Platelet Volume 9.4 fL (7.4-10.4); Nucleated Red Blood Cells % 0 %; Platelet Count 551 10^3/uL (130-400); Red Blood Cell Count 2.68 10^6/uL (4.20-5.40); Red Cell Dist. Width 13.8 % (11.5-14.5); White Blood Cell Count 9.2 10^3/uL (4.8-10.8)
[2023-08-04 12:10] LABS: Blood Urea Nitrogen 37 mg/dl (7-17); Calcium 8.3 mg/dl (8.4-10.2); Carbon Dioxide 27 mmol/L (22-30); Chloride 94 mmol/L (98-107); Glucose 95 mg/dl (70-99); Sodium 127 mmol/L (135-145); eGFR > 60.00
== END ==
LOC: OLABP 10:30
PROVIDERS: ATTENDING PHYSICIAN Family Medicine
DX: S72.321A Displaced transverse fracture of shaft of right femur, initial encounter for closed fracture (principal); I50.9 Heart failure, unspecified; S00.93XA Contusion of unspecified part of head, initial encounter; S72.91XA Unspecified fracture of right femur, initial encounter for closed fracture; I50.810 Right heart failure, unspecified; I34.0 Nonrheumatic mitral (valve) insufficiency; I27.20 Pulmonary hypertension, unspecified; I10 Essential (primary) hypertension; I77.9 Disorder of arteries and arterioles, unspecified; M10.9 Gout, unspecified
CPT/HCPCS: 36415; 80048; 85025

== ENCOUNTER → 2023-08-06 11:22 | Outpatient (REF) | payer OTHER, MEDICARE, SELFPAY ==
[2023-08-06 12:45] LABS: % Basophils 1.2 % (0-2); % Eosinophils 2.6 % (0-6); % Immature Granulocytes 3.9 % (0-0.5); % Lymphocytes 16.7 % (20.5-51.1); % Monocytes 11.3 % (1.7-9.3); % Neutrophils 64.3 % (42.2-75.2); Absolute Basophils 0.1 10^3/uL (0-0.2); Absolute Eosinophils 0.2 10^3/uL (0-0.7); Absolute Immature Granulocytes 0.4 10^3/uL (0-0.05); Absolute Lymphocytes 1.5 10^3/uL (1.2-3.4); Absolute Neutrophils 5.7 10^3/uL (1.4-6.5); Hematocrit 24.6 % (37.0-47.0); Hemoglobin 7.9 g/dL (12.0-16.0); Mean Corp Hgb Conc. 32.1 g/dL (33.0-37.0); Mean Corpuscular Hgb 29.9 pg (27.0-31.0); Mean Corpuscular Volume 93.2 fL (81.0-99.0); Mean Platelet Volume 9.4 fL (7.4-10.4); Nucleated Red Blood Cells % 0 %; Platelet Count 581 10^3/uL (130-400); Red Blood Cell Count 2.64 10^6/uL (4.20-5.40); Red Cell Dist. Width 13.7 % (11.5-14.5); White Blood Cell Count 8.9 10^3/uL (4.8-10.8)
[2023-08-06 13:02] LABS: ALT (SGPT) 34 U/L (0-35); AST (SGOT) 48 U/L (14-36); Alkaline Phosphatase 634 U/L (38-126); Blood Urea Nitrogen 36 mg/dl (7-17); Calcium 8.5 mg/dl (8.4-10.2); Carbon Dioxide 26 mmol/L (22-30); Chloride 94 mmol/L (98-107); Glucose 86 mg/dl (70-99); Potassium 4.6 mmol/L (3.5-5.1); Sodium 129 mmol/L (135-145); Total Bilirubin 0.5 mg/dl (0.2-1.3); Total Protein 5.6 g/dl (6.3-8.2); eGFR > 60.00
== END ==
LOC: OLABP 11:22
PROVIDERS: ATTENDING PHYSICIAN Family Medicine
DX: S72.321A Displaced transverse fracture of shaft of right femur, initial encounter for closed fracture (principal); I50.9 Heart failure, unspecified; S00.93XA Contusion of unspecified part of head, initial encounter; S01.81XA Laceration without foreign body of other part of head, initial encounter; S72.91XA Unspecified fracture of right femur, initial encounter for closed fracture; I50.810 Right heart failure, unspecified; I34.0 Nonrheumatic mitral (valve) insufficiency; I77.9 Disorder of arteries and arterioles, unspecified; M10.9 Gout, unspecified; I10 Essential (primary) hypertension; I27.20 Pulmonary hypertension, unspecified
CPT/HCPCS: 36415; 80053; 85025

== ENCOUNTER → 2023-08-10 12:58 | Outpatient (REF) | payer OTHER, MEDICARE, SELFPAY ==
[2023-08-10 13:43] LABS: % Basophils 1.2 % (0-2); % Eosinophils 1.8 % (0-6); % Immature Granulocytes 1.7 % (0-0.5); % Lymphocytes 12.5 % (20.5-51.1); % Monocytes 9.2 % (1.7-9.3); % Neutrophils 73.6 % (42.2-75.2); Absolute Basophils 0.1 10^3/uL (0-0.2); Absolute Eosinophils 0.2 10^3/uL (0-0.7); Absolute Immature Granulocytes 0.2 10^3/uL (0-0.05); Absolute Lymphocytes 1.2 10^3/uL (1.2-3.4); Absolute Monocytes 0.9 10^3/uL (0.1-0.6); Absolute Neutrophils 6.9 10^3/uL (1.4-6.5); Hematocrit 25.2 % (37.0-47.0); Hemoglobin 8.1 g/dL (12.0-16.0); Mean Corp Hgb Conc. 32.1 g/dL (33.0-37.0); Mean Corpuscular Volume 93.3 fL (81.0-99.0); Mean Platelet Volume 9.2 fL (7.4-10.4); Nucleated Red Blood Cells % 0 %; Platelet Count 558 10^3/uL (130-400); White Blood Cell Count 9.4 10^3/uL (4.8-10.8)
[2023-08-10 13:52] LABS: ALT (SGPT) 22 U/L (0-35); AST (SGOT) 29 U/L (14-36); Alkaline Phosphatase 402 U/L (38-126); Blood Urea Nitrogen 27 mg/dl (7-17); Calcium 8.7 mg/dl (8.4-10.2); Carbon Dioxide 23 mmol/L (22-30); Chloride 100 mmol/L (98-107); Glucose 91 mg/dl (70-99); Potassium 4.6 mmol/L (3.5-5.1); Sodium 130 mmol/L (135-145); Total Bilirubin 0.4 mg/dl (0.2-1.3); Total Protein 5.6 g/dl (6.3-8.2); eGFR > 60.00
== END ==
LOC: OLABP 12:58
PROVIDERS: ATTENDING PHYSICIAN Family Medicine
DX: S72.91XA Unspecified fracture of right femur, initial encounter for closed fracture (principal); S72.321D Displaced transverse fracture of shaft of right femur, subsequent encounter for closed fracture with routine healing; S72.321A Displaced transverse fracture of shaft of right femur, initial encounter for closed fracture; I50.9 Heart failure, unspecified; S00.93XA Contusion of unspecified part of head, initial encounter; S01.81XA Laceration without foreign body of other part of head, initial encounter; I50.810 Right heart failure, unspecified; E78.5 Hyperlipidemia, unspecified; M10.9 Gout, unspecified
CPT/HCPCS: 36415; 80053; 85025

== ENCOUNTER → 2023-08-25 11:33 | Outpatient (REF) | payer MEDICARE, OTHER, SELFPAY ==
[2023-08-25 13:39] LABS: % Basophils 0.5 % (0-2); % Eosinophils 1.7 % (0-6); % Immature Granulocytes 0.9 % (0-0.5); % Lymphocytes 10.3 % (20.5-51.1); % Monocytes 8.1 % (1.7-9.3); % Neutrophils 78.5 % (42.2-75.2); Absolute Basophils 0.1 10^3/uL (0-0.2); Absolute Eosinophils 0.2 10^3/uL (0-0.7); Absolute Immature Granulocytes 0.1 10^3/uL (0-0.05); Absolute Monocytes 0.8 10^3/uL (0.1-0.6); Absolute Neutrophils 7.6 10^3/uL (1.4-6.5); Hematocrit 27.2 % (37.0-47.0); Hemoglobin 8.7 g/dL (12.0-16.0); Mean Corpuscular Hgb 28.9 pg (27.0-31.0); Mean Corpuscular Volume 90.4 fL (81.0-99.0); Mean Platelet Volume 9.5 fL (7.4-10.4); Nucleated Red Blood Cells % 0 %; Platelet Count 434 10^3/uL (130-400); Red Blood Cell Count 3.01 10^6/uL (4.20-5.40); White Blood Cell Count 9.7 10^3/uL (4.8-10.8)
[2023-08-25 14:57] LABS: ALT (SGPT) < 10 U/L (0-35); AST (SGOT) 15 U/L (14-36); Albumin 3.4 g/dl (3.5-5.0); Alkaline Phosphatase 170 U/L (38-126); Blood Urea Nitrogen 21 mg/dl (7-17); Calcium 8.6 mg/dl (8.4-10.2); Carbon Dioxide 25 mmol/L (22-30); Chloride 99 mmol/L (98-107); Glucose 108 mg/dl (70-99); Magnesium 1.1 mg/dl (1.6-2.3); Potassium 4.9 mmol/L (3.5-5.1); Sodium 133 mmol/L (135-145); Total Bilirubin 0.4 mg/dl (0.2-1.3); eGFR > 60.00
== END ==
LOC: RAD 11:33
PROVIDERS: ATTENDING PHYSICIAN Internal Medicine
DX: S72.32 Transverse fracture of shaft of femur (principal); M25.551 Pain in right hip; E87.8 Other disorders of electrolyte and fluid balance, not elsewhere classified; I50.32 Chronic diastolic (congestive) heart failure; Z09 Encounter for follow-up examination after completed treatment for conditions other than malignant neoplasm
CPT/HCPCS: 36415; 73502; 80053; 83735; 85025

== ENCOUNTER → 2023-09-08 15:19 | Outpatient (REF) | payer MEDICARE, OTHER, SELFPAY ==
[2023-09-08 16:13] LABS: % Eosinophils 1.6 % (0-6); % Immature Granulocytes 0.3 % (0-0.5); % Lymphocytes 19.1 % (20.5-51.1); % Monocytes 9.4 % (1.7-9.3); % Neutrophils 68.6 % (42.2-75.2); Absolute Basophils 0.1 10^3/uL (0-0.2); Absolute Eosinophils 0.1 10^3/uL (0-0.7); Absolute Lymphocytes 1.3 10^3/uL (1.2-3.4); Absolute Monocytes 0.7 10^3/uL (0.1-0.6); Absolute Neutrophils 4.7 10^3/uL (1.4-6.5); Hematocrit 27.7 % (37.0-47.0); Hemoglobin 8.7 g/dL (12.0-16.0); Mean Corp Hgb Conc. 31.4 g/dL (33.0-37.0); Mean Corpuscular Hgb 29.4 pg (27.0-31.0); Mean Corpuscular Volume 93.6 fL (81.0-99.0); Mean Platelet Volume 9.8 fL (7.4-10.4); Nucleated Red Blood Cells % 0 %; Platelet Count 333 10^3/uL (130-400); Red Blood Cell Count 2.96 10^6/uL (4.20-5.40); Red Cell Dist. Width 15.6 % (11.5-14.5); White Blood Cell Count 6.9 10^3/uL (4.8-10.8)
[2023-09-08 16:41] LABS: Magnesium 1.8 mg/dl (1.6-2.3)
== END ==
LOC: REG 15:19
PROVIDERS: ATTENDING PHYSICIAN Internal Medicine
DX: D64.9 Anemia, unspecified (principal); R79.0 Abnormal level of blood mineral
CPT/HCPCS: 36415; 83735; 85025

== ENCOUNTER → 2023-09-22 13:12 | Outpatient (REF) | payer MEDICARE, OTHER, SELFPAY ==
[2023-09-22 14:00] LABS: Reticulocyte Count 2.9 % (0.4-2.8)
[2023-09-22 14:34] LABS: Iron 55 ug/dl (37-170)
[2023-09-22 14:44] LABS: Percent Saturation 20 % (20-50); Total Iron Binding Capacity 268 ug/dl (265-497)
[2023-09-22 14:45] LABS: Erythrocyte Sed Rate 56 mm/hour (0-20)
== END ==
LOC: REG 13:12
PROVIDERS: ATTENDING PHYSICIAN Internal Medicine; REFERRING PHYSICIAN Internal Medicine Rheumatology
DX: D64.9 Anemia, unspecified (principal)
CPT/HCPCS: 36415; 82728; 83540; 83550; 85045; 85652

== ENCOUNTER → 2023-09-28 12:14 | Outpatient (REF) | payer MEDICARE, OTHER, SELFPAY ==
[2023-09-28 13:16] LABS: Ionized Calcium 1.16 mMOL/L (1.15-1.33)
[2023-09-28 13:45] LABS: ALT (SGPT) < 10 U/L (0-35); AST (SGOT) 21 U/L (14-36); Albumin 3.5 g/dl (3.5-5.0); Alkaline Phosphatase 128 U/L (38-126); Alkaline Phosphatase, Total 128 U/L (38-126); Blood Urea Nitrogen 37 mg/dl (7-17); Carbon Dioxide 25 mmol/L (22-30); Chloride 100 mmol/L (98-107); Glucose 99 mg/dl (70-99); Potassium 4.9 mmol/L (3.5-5.1); Sodium 135 mmol/L (135-145); Total Bilirubin 0.3 mg/dl (0.2-1.3); eGFR > 60.00
[2023-09-28 15:43] LABS: Alk Phos After Heat 109; Alkaline Phosphatase Percent 85.16
[2023-09-30 12:13] LABS: Intact PTH 212.8 pg/ml (13.6-85.8)
== END ==
LOC: REG 12:14
PROVIDERS: ATTENDING PHYSICIAN Internal Medicine Rheumatology; FAMILY PHYSICIAN Internal Medicine
DX: E03.9 Hypothyroidism, unspecified (principal); E21.5 Disorder of parathyroid gland, unspecified; E55.9 Vitamin D deficiency, unspecified; M51.36 Other intervertebral disc degeneration, lumbar region; M54.6 Pain in thoracic spine; M81.0 Age-related osteoporosis without current pathological fracture; N25.81 Secondary hyperparathyroidism of renal origin; R74.8 Abnormal levels of other serum enzymes
CPT/HCPCS: 36415; 80053; 82306; 82330; 82523; 83970; 84078

== ENCOUNTER → 2023-10-19 16:36 | Outpatient (REF) | payer MEDICARE, OTHER, SELFPAY ==
[2023-10-19 17:51] LABS: % Basophils 1.7 % (0-2); % Eosinophils 1.8 % (0-6); % Immature Granulocytes 0.5 % (0-0.5); % Lymphocytes 16.6 % (20.5-51.1); % Monocytes 9.4 % (1.7-9.3); Absolute Basophils 0.1 10^3/uL (0-0.2); Absolute Eosinophils 0.2 10^3/uL (0-0.7); Absolute Lymphocytes 1.4 10^3/uL (1.2-3.4); Absolute Monocytes 0.8 10^3/uL (0.1-0.6); Absolute Neutrophils 5.7 10^3/uL (1.4-6.5); Hematocrit 31.6 % (37.0-47.0); Mean Corp Hgb Conc. 31.6 g/dL (33.0-37.0); Mean Corpuscular Hgb 28.6 pg (27.0-31.0); Mean Corpuscular Volume 90.3 fL (81.0-99.0); Mean Platelet Volume 9.7 fL (7.4-10.4); Nucleated Red Blood Cells % 0 %; Platelet Count 340 10^3/uL (130-400); Red Cell Dist. Width 14.9 % (11.5-14.5); White Blood Cell Count 8.2 10^3/uL (4.8-10.8)
[2023-10-19 18:13] LABS: Erythrocyte Sed Rate 63 mm/hour (0-20)
== END ==
LOC: REG 16:36
PROVIDERS: ATTENDING PHYSICIAN Internal Medicine
DX: D64.9 Anemia, unspecified (principal); L97.912 Non-pressure chronic ulcer of unspecified part of right lower leg with fat layer exposed
CPT/HCPCS: 36415; 85025; 85652

== ENCOUNTER → 2023-12-01 15:21 | Outpatient (REF) | payer MEDICARE, OTHER, SELFPAY ==
[2023-12-01 16:08] LABS: % Basophils 1.4 % (0-2); % Eosinophils 3.6 % (0-6); % Immature Granulocytes 0.8 % (0-0.5); % Lymphocytes 12.8 % (20.5-51.1); % Monocytes 12.8 % (1.7-9.3); % Neutrophils 68.6 % (42.2-75.2); Absolute Basophils 0.1 10^3/uL (0-0.2); Absolute Eosinophils 0.2 10^3/uL (0-0.7); Absolute Immature Granulocytes 0.1 10^3/uL (0-0.05); Absolute Lymphocytes 0.9 10^3/uL (1.2-3.4); Absolute Monocytes 0.9 10^3/uL (0.1-0.6); Absolute Neutrophils 4.6 10^3/uL (1.4-6.5); Hemoglobin 10.2 g/dL (12.0-16.0); Mean Corpuscular Hgb 28.3 pg (27.0-31.0); Mean Corpuscular Volume 83.3 fL (81.0-99.0); Nucleated Red Blood Cells % 0 %; Platelet Count 346 10^3/uL (130-400); Red Cell Dist. Width 15.2 % (11.5-14.5); White Blood Cell Count 6.6 10^3/uL (4.8-10.8)
[2023-12-01 16:18] LABS: Erythrocyte Sed Rate 61 mm/hour (0-20)
[2023-12-01 16:22] LABS: ALT (SGPT) 13 U/L (0-35); AST (SGOT) 28 U/L (14-36); Albumin 3.8 g/dl (3.5-5.0); Alkaline Phosphatase 156 U/L (38-126); Blood Urea Nitrogen 46 mg/dl (7-17); Calcium 9.3 mg/dl (8.4-10.2); Carbon Dioxide 28 mmol/L (22-30); Chloride 94 mmol/L (98-107); Glucose 97 mg/dl (70-99); Potassium 5.1 mmol/L (3.5-5.1); Sodium 132 mmol/L (135-145); Total Bilirubin 0.3 mg/dl (0.2-1.3); Total Protein 6.3 g/dl (6.3-8.2); eGFR > 60.00
== END ==
LOC: REG 15:21
PROVIDERS: ATTENDING PHYSICIAN Internal Medicine
DX: D64.9 Anemia, unspecified (principal); R70.0 Elevated erythrocyte sedimentation rate; S81.801D Unspecified open wound, right lower leg, subsequent encounter; M70.22 Olecranon bursitis, left elbow; E87.1 Hypo-osmolality and hyponatremia
CPT/HCPCS: 36415; 80053; 84155; 84165; 85025; 85652; 86140

== ENCOUNTER → 2023-12-27 06:53 | Outpatient (REF) | payer MEDICARE, OTHER, SELFPAY | LOC: MRI 06:53 | PROVIDERS: ATTENDING PHYSICIAN Internal Medicine; REFERRING PHYSICIAN Surgery | DX: M71.22 Synovial cyst of popliteal space [Baker], left knee (principal); S81.801D Unspecified open wound, right lower leg, subsequent encounter | CPT/HCPCS: 73718 ==

== ENCOUNTER 2024-03-30 22:14 | Inpatient (IN) | payer MEDICARE, OTHER, SELFPAY ==
[2024-03-30 17:40] VITALS: BP 103/48
[2024-03-30 17:59] LABS: % Basophils 0.1 % (0-2); % Eosinophils 0.2 % (0-6); % Immature Granulocytes 0.5 % (0-0.5); % Lymphocytes 3.6 % (20.5-51.1); % Monocytes 5.5 % (1.7-9.3); % Neutrophils 90.1 % (42.2-75.2); Absolute Immature Granulocytes 0.1 10^3/uL (0-0.05); Absolute Lymphocytes 0.6 10^3/uL (1.2-3.4); Absolute Monocytes 0.9 10^3/uL (0.1-0.6); Absolute Neutrophils 15.1 10^3/uL (1.4-6.5); Hematocrit 32.7 % (37.0-47.0); Hemoglobin 10.7 g/dL (12.0-16.0); Mean Corp Hgb Conc. 32.7 g/dL (33.0-37.0); Mean Corpuscular Hgb 29.6 pg (27.0-31.0); Mean Corpuscular Volume 90.3 fL (81.0-99.0); Mean Platelet Volume 9.4 fL (7.4-10.4); Nucleated Red Blood Cells % 0 %; Platelet Count 223 10^3/uL (130-400); Red Blood Cell Count 3.62 10^6/uL (4.20-5.40); White Blood Cell Count 16.8 10^3/uL (4.8-10.8)
[2024-03-30 18:20] LABS: ALT (SGPT) 60 U/L (0-35); AST (SGOT) 47 U/L (14-36); Albumin 3.5 g/dl (3.5-5.0); Alkaline Phosphatase 90 U/L (38-126); Blood Urea Nitrogen 56 mg/dl (7-17); Calcium 8.5 mg/dl (8.4-10.2); Carbon Dioxide 21 mmol/L (22-30); Chloride 96 mmol/L (98-107); Glucose 106 mg/dl (70-99); Potassium 6.2 mmol/L (3.5-5.1); Sodium 129 mmol/L (135-145); Total Bilirubin 0.4 mg/dl (0.2-1.3); Total Protein 5.9 g/dl (6.3-8.2); eGFR 41.31
[2024-03-30 19:26] VITALS: BP 106/54; BMI 24.1
[2024-03-30] MEDS: VANCOCIN 200 IV (19:43)
[2024-03-30] MEDS: LOKELMA 10 GRAM PO (19:43)
[2024-03-30] MEDS: NSS 1000 IV ×2 (19:43→23:32)
[2024-03-30 19:54] LABS: Lactic Acid 1.2 mmol/L (0.7-2.0)
--- NOTE | 2024-03-30 20:26 | ED.SKININJ ---
HPI-Injury
General
Chief Complaint: Skin Problem
Source: patient and family (Son)
Exam Limitations: none
Time Seen by Provider: 03/30/24 18:33
Nursing documentation reviewed up to this point in time: agreed with
History of Present Illness-Injury
Is this injury a work related problem?: No
Is pt an associate of [facility]?: No
Initial Injury comments:
Patient to ED for eval of increasing redness and swelling to RLE. SHe has a wound to lower right leg. She developed a pressure wound at site. Skin graft applied to site this past summer. Still with open wouond at site. Over the past few days
redness and swelling has increased, Sent to ED by PCP for eval. She denies fever/chills.
Past History
Past History
ED Past Medical History: CHF, CVA, GERD, HTN, Hypercholesterolemia, Valvular disease (Mitral regurgitation), Hypothyroidism and Other (spinal stenosis, herniated L2-3-4-5, IBS, osteoarthritis,)
ED Past Surgical History: Bowel resection (Small bowel resection), Cholecystectomy, Gynecological (Hysterectomy), Orthopedic (L2-L5 laminectomy, left wrist ganglion cyst, L2-L4 fusion) and Other (Hemorrhoidectomy, left endarterectomy, excision of
basal cell carcinoma nose 2000, Unbilical hernia)
Social History
Tobacco: Non-smoker
Alcohol: None
Personal:
Living: with family (son lives with her)
Employment: Retired
Family History
Family History: Other (Noncontributory)
Review of Systems
Review of Systems
Allergies reviewed?: Yes
All Other Systems: ROS reviewed and negative except as documented in HPI and ROS
Constitutional: Reports no symptoms
EENT: Reports no symptoms
Respiratory: Reports no symptoms
Cardiac: Reports no symptoms
Musculoskeletal: Reports no symptoms
Skin: Reports other (Nonhealing wound to RLE. Increasing discharged. RLE with erythema and swelling.)
Neurological: Reports no symptoms
Psychiatric: Reports no symptoms
Phy Exam
General Physical Exam
General Presentation: well appearing and no apparent distress
General age: appears stated age
General Skin: warm and dry
General Habitus: normal
General Mental: alert
Musculoskeletal Exam
Musculoskeletal Exam: neuro vasc intact
Skin Exam
Skin Exam: warm/dry and other (Nonhealing wound RLE, surrounding cellulitis.)
Psychiatric Exam
Psychiatric Exam: normal mood/affect
Course
Orders/Labs/Results
Orders:
Orders
03/30/24 Dinner
Regular
At Your Request: Full Participation
03/30/24 17:51
CMP [Comprehensive Metabolic Panel] Urgent
Complete Blood Count/With Diff Urgent
03/30/24 18:49
Vancomycin 1 Gram/200 ml [Vancocin] 1 gram in 200 ml IV NOW
03/30/24 18:50
0.9% Sodium Chloride 1000 ml [Nss] 1,000 ml IV BOLUS
03/30/24 18:51
US Periph Venous LOWER Ext RT Urgent
Comment:
Reason For Exam: erythema swelling pain
03/30/24 19:15
Sodium Zirconium Cyclosilicate [Lokelma] 10 gram PO NOW STA
Test Result ONCE
03/30/24 19:35
Lactic Acid Urgent
Blood Culture Urgent
GERMÁN Source: Blood/Venous
Specimen Description:
Wound Culture [Wound/Abscess/Other Culture] Urgent
GERMÁN Source: Leg
Specimen Description: Right
Date Specimen was Collected: 03/30/24
Time Specimen was Collected: 18:57
03/30/24 21:00
Flush (0.9% Sodium Chloride) [Flush (Nss)] See Dose Instructions IV PER PROTOCOL
03/30/24 21:47
Admit/Transfer Patient As Directed
Co-Sign Provider:
Level of Care: Inpatient admission
Assign to:: Telemetry
Physician / Group: august conrad
Diagnosis: rle cellulitis w/ chronic open wound right achilles, kofi,hyperK,hypotension
Reason for Telemetry: Arrhythmia
Date to Stop Telemetry: 04/02/24
Time to Stop Telemetry: 11:00
Reason for Hospitalization: rle cellulitis w/ chronic open wound right achilles, kofi,hyperK,hypotension
Expected length of stay greater than two midnights?: Yes
ELOS- Estimated Length of Stay in days: 5
I certify the patient meets the requirements for IP care: Yes
EKG [Electrocardiogram (*1)] Urgent
Reason for Study: Other
Other Reason for Exam: hyperkalemia
03/30/24 21:48
Code Status As Directed
Resuscitation Status: Full Code
03/30/24 21:52
PRN Pain Medication Management As Directed
May give lesser potent ordered pain med per pt: Yes
preference::
Protocol:: Medication orders for pain may be administered in a
manner that supports deferring to patient preference
when the pt is:
- Requesting an ordered lesser potent pain medication.
Least to most potent pain medications are defined
as: acetaminophen < NSAID < tramadol < opioids
(morphine, oxycodone, hydromorphone).
- Requesting a lesser dose of the same medication IF
ORDERED.
- Requesting a less intrusive route of administration
if both routes are prescribed by the provider (PO <
IV).
03/30/24 22:46
0.9% Sodium Chloride 1000 ml [Nss] 1,000 ml IV 80 mls/hr
Acetaminophen [Tylenol] 650 mg PO Q4HPRN PRN
Amitriptyline [Elavil] 50 mg PO HS
Gabapentin [Neurontin] 300 mg PO BID
Tobramycin/Dexamethasone [Tobradex Eye Drops] 1 drop BOTH EYES [id number] PRN
Tobramycin/Dexamethasone [Tobradex Eye Ointment] See Dose Instructions BOTH EYES HS
03/30/24 22:46
WOUND/OSTOMY CONSULT Routine
Reason for Consult: rle posterior achilles tendon open ulceration
Activity As Directed
Activity Level: As Tolerated
Intake/ Output As Directed
Frequency: Per unit guidelines
Vital Signs As Directed
Frequency: Per unit guidelines
Weight As Directed
Frequency: Daily
Ot Eval And Treat Routine
Pt Eval And Treat Routine
Activity Level: As Tolerated
DX Deep Vein Thrombosis Video Routine
03/30/24 22:55
Hydrocodone 7.5/APAP 325 [[place] 7.5/325] 1 tablet PO TIDPRN PRN
03/30/24 23:45
VANCOMYCIN Pharmacy to Dose [VANCOCIN Pharmacy to Dose] 1 each Pharmacy To Prepare [Call Pharmacy To Prepare] 0 ml IV PER PROTOCOL
03/31/24 06:00
Levothyroxine [Synthroid] 25 mcg PO DAILY @ 0600
03/31/24 06:51
Complete Blood Count/With Diff IN AM
Comprehensive Metabolic Panel IN AM
03/31/24 08:00
Aspirin Low Dose EC [Aspir Low (Enteric Coated)] 81 mg PO DAILY
Calcium Carbonate/Vitamin D3 [Oscal 500 + D] 500 mg PO BID
Cholecalciferol (Vitamin D3) [VITAMIN D3 (cholecalciferol)] 25 mcg PO DAILY
Cyanocobalamin [Vitamin B-12] 1,000 mcg PO DAILY
Famotidine [Pepcid] 20 mg PO DAILY
Ferrous Sulfate [Feosol] 325 mg PO DAILY
Heparin 5,000 units SC Q12
Pantoprazole [Protonix] 40 mg PO DAILY
Polyethylene Glycol Powder [Miralax] 17 grams PO DAILY
03/31/24 18:00
Atorvastatin [Lipitor] 80 mg PO QPM
04/01/24 06:00
Complete Blood Count/With Diff IN AM
Comprehensive Metabolic Panel IN AM
04/02/24 06:00
Complete Blood Count/With Diff IN AM
Comprehensive Metabolic Panel IN AM
04/02/24 11:00
DC Protocol for Telemetry ONCE
04/03/24 06:00
Complete Blood Count/With Diff IN AM
Comprehensive Metabolic Panel IN AM
Abnormal Lab Results
03/30/24
17:51
WBC 16.8 H 10^3/uL
(4.8-10.8)
RBC 3.62 L 10^6/uL
(4.20-5.40)
Hgb 10.7 L g/dL
(12.0-16.0)
Hct 32.7 L %
(37.0-47.0)
MCHC 32.7 L g/dL
(33.0-37.0)
RDW 16.0 H %
(11.5-14.5)
Abs Immat Gran (auto) 0.1 H 10^3/uL
(0-0.05)
Absolute Neuts (auto) 15.1 H 10^3/uL
(1.4-6.5)
Absolute Lymphs (auto) 0.6 L 10^3/uL
(1.2-3.4)
Absolute Monos (auto) 0.9 H 10^3/uL
(0.1-0.6)
Neutrophils % 90.1 H %
(42.2-75.2)
Lymphocytes % 3.6 L %
(20.5-51.1)
Sodium 129 L mmol/L
(135-145)
Potassium 6.2 H* mmol/L
(3.5-5.1)
Chloride 96 L mmol/L
(98-107)
Carbon Dioxide 21 L mmol/L
(22-30)
BUN 56 H mg/dl
(7-17)
Creatinine 1.3 H mg/dL
(0.6-1.0)
Glucose 106 H mg/dl
(70-99)
AST 47 H U/L
(14-36)
ALT 60 H U/L
(0-35)
Total Protein 5.9 L g/dl
(6.3-8.2)
03/30/24 17:51
03/30/24 17:51
Vital Signs
Initial and Last Documented VS:
Initial Vital Signs
Temp Pulse Resp BP Pulse Ox
98.7 F 88 16 103/48 98
03/30/24 17:40 03/30/24 17:40 03/30/24 17:40 03/30/24 17:40 03/30/24 17:40
Last Documented Vital Signs
Temp Pulse Resp BP Pulse Ox
98.6 F 90 16 117/73 97
03/31/24 15:54 03/31/24 15:54 03/31/24 15:54 03/31/24 15:54 03/31/24 15:54
*Radiology
Radiology exam reviewed: radiology read reviewed
*Pulse Oximetry
Patient hypoxic: no
*Critical Care Note
Total Time (30-74mins, 75-104mins- exclusive of procedures): Not Applicable
ED Attending Note
-
Portions of this chart may have been created with voice recognition software.� Occasional wrong word or��sound alike� substitutions may have occurred due to the inherent limitations of voice recognition software.
Discharge Plan
Departure
Patient Disposition: Admit
Date of Disposition: 03/30/24
Time of Disposition: 20:31
Presentation/result/management discussed w/ accepting MD/DO: Hospitalist
Patient with high blood pressure during this ER visit?: No
Condition: Fair
Covid-19: Not Applicable
Discharge Problem:
Cellulitis of right leg
Interventions
Interventions:
*Risk Screen - Suicide Last Done: 03/30/24 17:40
*General Assessment Last Done: 03/30/24 17:40
*Neglect/Abuse Screening Last Done: 03/30/24 17:40
*ED COVID-19 Vaccine History Last Done: 03/30/24 17:40
*Nursing Disposition Last Done: 03/30/24 22:41
Discharge Date and Time
Discharge Date/Time: 03/30/24 22:42
--- NOTE | 2024-03-30 21:13 | HPS.HSE ---
Addendum entered and electronically signed by Mars Rod DO 03/30/24 22:41:
Patient seen and examined independently. Agree with findings and plan as set forth by LILIAM Michael.
Patient is an 83y F with PMH significant for chronic R Achilles wound s/p fall with R femur fracture 07/2023 who presents to ED complaining of RLE pain and rapidly progressing redness from the foot to the groin over the past 24 hours. Patient
denies any systemic symptoms of fevers / chills, N/V/D, etc. She notes that she had steroid injections into the R knee (03/24) and the L elbow and R shoulder (03/25). She is followed by [facility] at [place].
Ass:
RLE Cellulitis
RLE Wound
JACI
Hyperkalemia
Hyponatremia
Hypothyroidism
Chronic HFpEF
GERD
Anxiety / Depression / Insomnia
Plan:
Admit for further evaluation and treatment.
Continue IV Vancomycin for now and follow for improvement.
Wound Care eval for local care of RLE wound.
Hold diuretics, ARB, supplemental potassium.
IVF replacement overnight and follow for improvement in labs / lytes.
Follow for any new / worsening symptoms.
Follow temperature curve.
Continue usual T4 replacement, anxiolytic regimen, etc.
Original Note:
Family Physician
-
Family Physician: Hebert Rogers
Chief Complaint
-
Right lower extremity swelling/erythema
History of Present Illness
83-year-old female complaining of a chronic ongoing wound to her right lower extremity behind her Achilles after a fall in July where she required right femur repair with rods and sustained an abrasion behind her right Achilles.. She reports this
summer the wound required a graft application. She states she has been applying alginate and collagen cream to her right posterior Achilles tendon since November and following with outpatient [place] wound care. Yesterday she states she woke up and
had erythema from the Foot extending up her leg to the inner thigh with swelling. She was seen by her PCP Dr. Hebert Rogers and sent to the ER for evaluation. She denies fever, chills, headache, chest pain, palpitations, shortness of breath, cough,
abdominal pain, nausea, vomiting, diarrhea, urinary symptoms. She also reports she had her left elbow chronic bursitis drained along with her right shoulder bursitis drained . On 03/25 she had her right shoulder injected with steroids .
She reports she also had her right knee drained by her wound care dr and injected with steroids on 03/24.
She has past medical history of CHF, HTN, CEA status post left endarterectomy , mitral regurg, anxiety, bowel obstruction with resection 2018, IBS, constipation, chronic back pain status post laminectomy with fusion L2-L5, L2, L4 fusion with bone
06/24/2011, GERD, hyperthyroidism, frequent urination, arthritis, osteoporosis, chronic blepharitis, carotid stenosis status post left endarterectomy, hemorrhoidectomy, squamous cell removal forearm, forehead, basal cell removal nose
Medical History
Past Medical History
Past Medical History: Reports Other
Additional Past Medical History:
FallJuly 2023 requiring right femur repair
FallJuly 2023 causing right posterior Achilles tear and chronic wound
CHF
HTN
HLD
CEA status post left endarterectomy 1985
Mitral regurg
Anxiety
Bowel obstruction 2018
IBS
Constipation
Back pain s/p laminectomy with fusion 06/24/2011
GERD
Hyperthyroidism
Frequent urination
Arthritis
Osteoporosis
Chronic blepharitis
chronic bursitis to left elbow, right shoulder, right knee
Past Surgical History: Reports Other
Additional Past Surgical History:
Hemorrhoidectomy 1971
Hysterectomy
Left endarterectomy
Cholecystectomy
Excision of basal cell carcinoma from nose 2000
Squamous cell removal forearm, forehead
Small bowel obstruction status post colon resection 10/28/2018
Left wrist ganglion cyst removal August 2009
Laminectomy L2-L5, L2 L4 fusion with bone 06/24/2011
Social History
Tobacco: Non-smoker
Alcohol: None
Drug: None
Personal: Single
Living: With Family (2 sons live with her)
Employment: Retired
Family History
Family History: Not pertinent
Allergies / Home Medications
Allergies reflects when Allergies were last updated in [facility].
Home Medications with original date entered in [facility]
Allergy/Medication List:
Allergies
Allergy/AdvReac Type Severity Reaction Status Date / Time
adhesive Allergy Rash Verified 03/30/24 17:43
erythromycin base Allergy Burning, Verified 03/30/24 17:43
[Erythromycin Base] itchy eyes
mold Allergy ITCHY EYES Verified 03/30/24 17:43
Penicillins Allergy throat Verified 03/30/24 17:43
swelling
sensation
while on
Augmentin
pollen extracts Allergy seasonal-ITCHY Verified 03/30/24 17:43
EYES,RUNNY
NOSE
polymyxin B Allergy Burning of Verified 03/30/24 17:43
eyes
Home Medications
alprazolam 0.25 mg tablet 0.25 mg PO BID anxiety 06/13/11
amitriptyline 50 mg tablet 50 mg PO HS Sleep 06/13/11
aspirin 81 mg tablet,delayed release 81 mg PO DAILY Blood clot prevention/tx 06/13/11
famotidine 40 mg tablet 40 mg PO DAILY Gastrointestinal issue 06/13/11
labetalol 300 mg tablet 450 mg PO BID Blood pressure 06/13/11
pantoprazole 40 mg tablet,delayed release 40 mg PO DAILY Gastrointestinal issue 06/13/11
losartan 100 mg tablet (Cozaar) 100 mg PO DAILY Blood pressure 07/07/16
gabapentin 300 mg capsule 300 mg PO TID Neurological Condition 10/01/18
cyanocobalamin (vitamin B-12) 1,000 mcg tablet 1,000 mcg PO DAILY Supplement 07/16/20
ferrous sulfate 325 mg (65 mg iron) tablet (Feosol) 325 mg PO DAILY Supplement 07/16/20
levothyroxine 25 mcg capsule 25 mcg PO DAILY AT 0700 Thyroid 07/16/20
polyethylene glycol 3350 17 gram oral powder packet 17 grams PO DAILY Congestion 07/16/20
atorvastatin 80 mg tablet (Lipitor) 80 mg PO QPM High Cholesterol 07/03/23
cholecalciferol (vitamin D3) 25 mcg (1,000 unit) tablet (Vitamin D3) 25 mcg PO DAILY Supplement 07/03/23
hydrocodone 10 mg-acetaminophen 325 mg tablet 1 tab PO TIDPRN PRN severe pain 07/03/23
metolazone 2.5 mg tablet 2.5 mg PO WE Fluid Retention/Swelling 07/03/23
potassium chloride 20 mEq tablet,extended release 20 meq PO DAILY Supplement 07/03/23
torsemide 20 mg tablet 40 mg PO DAILY Fluid Retention/Swelling 07/03/23
Silver Collagen 1 patch topical Q48H Right Lower Leg 03/30/24
calcium 315 mg (as citrate)-vitamin D3 6.25 mcg (250 unit) tablet (Citracal + Vitamin D Maximum) 1 tab PO BID 03/30/24
cephalexin 500 mg capsule 500 mg PO TID 03/30/24
fluticasone propionate 50 mcg/actuation nasal spray,suspension 2 spray intranasal DAILY 03/30/24
tobramycin 0.3 %-dexamethasone 0.1 % eye drops,suspension 1 drp BOTH EYES Q48H PRN infection 03/30/24
tobramycin-dexamethasone 0.3 %-0.1 % eye ointment (TobraDex) 0.25 inch BOTH EYES HS 03/30/24
Review of Systems
-
History Source: Patient
A 12 point ROS was completed and negative except as noted: Yes
Constitutional: Denies Fever, Fatigue or Chills
EENT: Denies Sore Throat or Runny Nose
Respiratory: Denies Cough or Trouble Breathing
Cardiac: Denies Chest Pain, Diaphoresis, Palpitations or Syncope
Abdomen/GI: Denies Abdominal Pain, Nausea, Vomiting, Diarrhea, Constipated, Bloody Stools or Black Stools
: Denies Dysuria, Frequency, Flank Pain, Incontinence, Difficulty Voiding or Urgency
Musculoskeletal: Reports Edema (Right lower extremity); Denies Joint Pain
Skin: Reports Other (Right lower extremity cellulitis with chronic open wound right Achilles); Denies Itching or Rash
Neurological: Denies Dizzy, Headache or Weakness
Endocrine: Reports No Symptoms
Hematologic/Lymphatic: Reports No Symptoms
Psych: Reports Calm
Physical Exam
Vital Signs
Vital Signs
Temp Pulse Resp BP Pulse Ox
98.7 F 70 16 106/54 99
03/30/24 17:40 03/30/24 19:26 03/30/24 19:26 03/30/24 19:26 03/30/24 19:26
Physical Exam
General: Comfortable and Conversant; No Pain, Fever or Chills
HEENT: NormoCephalic, Anicteric, PERRLA, Sea Bright Conjunctivae, No Ptosis and Other (Chronic entropion of lower eyelids)
Respiratory: Clear; No Wheezes, Rales or Rhonchi
Cardiac: S1/S2, Regular Rhythm and Peripheral Edema (Right lower extremity +1 left lower extremity none); No Murmur, Rub or Gallop
Breast: Deferred by me
GI: Soft, Non Tender, Non Distended, Normal Bowel Sounds and No Hepatosplenomegaly
Genito-urinary: Deferred by me
Musculoskeletal: No Clubbing, No Cyanosis and Edema, Right Lower Extremity (+2 right lower extremity); No Edema, Left Upper Extremity, Edema, Right Upper Extremity or Edema, Left Lower Extremity
Skin: Warm, Dry, Ulcers (Right posterior Achilles open ulceration chronic present on admission with extending cellulitis right foot to right upper thigh) and Other (DIP deformities bilateral hands secondary to osteoarthritis); No Rash
Neuro: AO x 3, No Motor Deficits, Cranial Nerves Intact and No Sensory Deficits; No Slurred Speech, Facial Droop or Tremors
Psych: Calm
Laboratory Results
-
03/30/24 17:51
03/30/24 17:51
Laboratory Results
Lactic Acid 1.2 mmol/L (0.7-2.0) 03/30/24 19:35
Total Bilirubin 0.4 mg/dl (0.2-1.3) 03/30/24 17:51
AST 47 U/L (14-36) H 03/30/24 17:51
ALT 60 U/L (0-35) H 03/30/24 17:51
Alkaline Phosphatase 90 U/L (38-126) 03/30/24 17:51
Impression/Plan
-
Impression/plan:
Admit to telemetry
#Infected right lower extremity open wound
#Acute on chronic right lower extremity open wound Hx graft applied summer 2023 at [place]
#Chronic open wound over right Achilles has been following with wound care from November until present applying collagen cream
WBC 16.8 with left shift, HR 70, 98.7, 106/54
-IV vancomycin will continue as pt has allergy throat swelling to pcn
-Consult wound care
-Wound culture sent by ER
-Follow CBC, CMP
#Acute hyperkalemia 2/2 medications losartan, kcl
Potassium 6.2
-Patient given Lokelma 10 g in ER
-Hold losartan
-Follow BMP
#JACI
Creatinine 1.3 /bun 56 baseline 0.17 November 2023
-IV NSS 1 L given in ER continue IV NSS 80 cc/h
-Hold torsemide 40 mg daily, metolazone 2.5 mg Thursday
#Hypotension 2/2 volume depletion, diuretics/HTN�benign
BP 103/48
Hold losartan 100 mg daily, labetalol 450 mg p.o. twice daily, torsemide 40 mg daily
#Transaminitis likely reactive
AST 47, ALT 60 will follow CMP
#Acute on chronic hyponatremia
NA 129
-Check urine Osmo, serum Osmo, urine NA, TSH with free T4 reflex
#Hyperthyroidism
-Continue levothyroxine
chronic Left elbow , right knee right shoulder bursitis
- elbow and right shoulder drained and shoulder injected with steroids 03/25/[address] childs
right knee drained and injected by wound care dr at [facility] on ur 03/24/24
#Chronic anemia normocytic
Hgb 10.7
-Continue Feosol 325 mg daily
#Chronic CHF
I/O, daily weights
-Hold metolazone, torsemide 40 mg daily
#HLD
-Continue Lipitor 80 mg every afternoon
#GERD
-Continue Protonix 40 mg daily
#Anxiety
-Continue alprazolam 0.25 mg twice daily
#Chronic back pain s/p laminectomy with fusion 06/24/2011
-Continue hydrocodone/acetaminophen 1 tab p.o. 3 times daily as needed severe pain, gabapentin 300 mg 3 times daily
#Insomnia
Continue amitriptyline 50 mg at bedtime
Other PMH:
CEA status post left endarterectomy 1985
Mitral regurg
Bowel obstruction 2018
IBS
Constipation hx
Frequent urination
Arthritis
Osteoporosis
Chronic blepharitis-continue TobraDex eyedrops
DVT prophylaxis
Continue subcu heparin
Full code per patient
[2024-03-30 22:00] VITALS: BP 110/61
[2024-03-30 23:12] VITALS: BP 157/64; BMI 23.4
--- NOTE | 2024-03-30 23:12 | PHA.VAN.IN ---
Assessment
- Assessment
Renal Function: Appears elevated from baseline (12/01 BASELINE SCR: 0.9)
Concomitant Antimicrobials: NONE
- Previous Dosing Experience
Previous Regimen: NONE
Plan
- Plan
Initial / Loading Dose: 1GM
Maintenance Regimen: DOSING BY RANDOM LEVEL
Monitoring: RANDOM VANCOMYCIN LEVEL 03/31/24 AM
Pharmacokinetics Vancomycin I
- -
Patient Age: 83
Patient Sex: Female
Vancomycin Day #: 1
Indication: Skin And Soft Tissue (RLE WOUND)
Requesting Provider: NEVILLE
Pertinent Antimicrobial Allergies:
Allergies
Penicillins Allergy (Verified 03/30/24 17:43)
throat swelling sensation while on Augmentin
Tolerated cephalosporin.
erythromycin base [Erythromycin Base] Allergy (Verified 03/30/24 17:43)
Burning, itchy eyes
ERYTHROMYCIN OPH OINT GIVES BURNING, ITCHY EYES- OK w/ po
polymyxin B Allergy (Verified 03/30/24 17:43)
Burning of eyes
eye drops
Height / Weight:
Height 4 ft 7 in
Actual Weight 47 kg
Pertinent Past Medical History: CHRONIC WOUNDS
- Vital Signs / Lab Results
Temp Pulse Resp BP Pulse Ox
98.7 F 75 16 110/61 98
03/30/24 17:40 03/30/24 22:00 03/30/24 22:00 03/30/24 22:00 03/30/24 22:00
Lab Results - Hematology
03/30/24
17:51
WBC 16.8 H
Lab Results - Chemistry
03/30/24
17:51
BUN 56 H
Creatinine 1.3 H
Albumin 3.5
03/30/24
19:35
Lactic Acid 1.2
[2024-03-30] MEDS: ELAVIL 50 MG PO (23:31)
[2024-03-30] MEDS: NORCO 7.5/325 1 TABLET PO (23:31)
[2024-03-30] MEDS: TOBRADEX EYE 1 APPLIC BOTH EYES (23:32)
[2024-03-30] MEDS: NEURONTIN 300 MG PO (23:32)
[2024-03-31] VITALS (8 sets, daily range): BP systolic 117–173; BP diastolic 65–73; PULSE 80–81; O2SAT 98; BMI 23.4; BMI 23.5
[2024-03-31] MEDS: SYNTHROID 25 MCG PO (05:31)
[2024-03-31 07:06] LABS: % Basophils 0.1 % (0-2); % Eosinophils 0.8 % (0-6); % Immature Granulocytes 0.7 % (0-0.5); % Monocytes 7.2 % (1.7-9.3); % Neutrophils 85.2 % (42.2-75.2); Absolute Eosinophils 0.1 10^3/uL (0-0.7); Absolute Immature Granulocytes 0.1 10^3/uL (0-0.05); Absolute Lymphocytes 0.7 10^3/uL (1.2-3.4); Absolute Monocytes 0.9 10^3/uL (0.1-0.6); Absolute Neutrophils 10.4 10^3/uL (1.4-6.5); Hematocrit 31.3 % (37.0-47.0); Hemoglobin 10.1 g/dL (12.0-16.0); Mean Corp Hgb Conc. 32.3 g/dL (33.0-37.0); Mean Corpuscular Volume 89.9 fL (81.0-99.0); Mean Platelet Volume 9.5 fL (7.4-10.4); Nucleated Red Blood Cells % 0 %; Platelet Count 210 10^3/uL (130-400); Red Blood Cell Count 3.48 10^6/uL (4.20-5.40); Red Cell Dist. Width 16.3 % (11.5-14.5); White Blood Cell Count 12.2 10^3/uL (4.8-10.8)
[2024-03-31] MEDS: NEURONTIN 300 MG PO ×2 (07:27→22:00)
[2024-03-31] MEDS: ASPIR LOW (ENTERIC COATED) 81 MG PO (07:27)
[2024-03-31] MEDS: HEPARIN 5000 UNITS SC ×2 (07:28→16:59)
[2024-03-31] MEDS: FEOSOL 325 MG PO (07:28)
[2024-03-31] MEDS: VITAMIN B-12 1000 MCG PO (07:28)
[2024-03-31] MEDS: PEPCID 20 MG PO (07:28)
[2024-03-31] MEDS: PROTONIX 40 MG PO (07:28)
[2024-03-31] MEDS: VITAMIN D3 (cholecalciferol) 25 MCG PO (07:28)
[2024-03-31] MEDS: OSCAL 500 + D 500 MG PO ×2 (07:28→22:00)
[2024-03-31] MEDS: MIRALAX 17 GRAMS PO (07:28)
[2024-03-31 07:32] LABS: ALT (SGPT) 51 U/L (0-35); AST (SGOT) 34 U/L (14-36); Albumin 3.2 g/dl (3.5-5.0); Alkaline Phosphatase 91 U/L (38-126); Blood Urea Nitrogen 43 mg/dl (7-17); Calcium 8.5 mg/dl (8.4-10.2); Carbon Dioxide 24 mmol/L (22-30); Chloride 102 mmol/L (98-107); Estimated Creatinine Clearance 27 ml/min; Glucose 96 mg/dl (70-99); Potassium 5.1 mmol/L (3.5-5.1); Sodium 138 mmol/L (135-145); Total Bilirubin 0.2 mg/dl (0.2-1.3); Total Protein 5.5 g/dl (6.3-8.2)
[2024-03-31] MEDS: NORCO 7.5/325 1 TABLET PO ×2 (07:35→22:03)
[2024-03-31 07:38] LABS: Vancomycin Random 12.7 ug/ml
--- NOTE | 2024-03-31 08:19 | PHA.VAN.FU ---
Vancomycin Assessment / Plan
- Assessment
Renal Function: SCR Increasing
WBC's are: Trending Down
In the past 24 hrs, patient has been: Afebrile
- Assessment - Therapeutic Drug Monitoring
Random Level: 12.7 - drawn ~11H after previous dose of 1000mg
- Dosing Plan
Dosing by Level: Re-dose today (Vanc 500mg)
- Monitoring Plan
Random Level: 04/01 0600
- Follow Up
Pharmacy will continue to follow.
Vancomycin Follow UP
- -
Patient Age: 83
Patient Sex: Female
Vancomycin Day #: 2
Indication: Skin And Soft Tissue
Requesting Provider: Quique Christianson
Pertinent Antimicrobial Allergies:
Penicillins -throat swelling sensation while on Augmentin
Tolerated cephalosporin.
erythromycin base - Burning, itchy eyes
ERYTHROMYCIN OPH OINT GIVES BURNING, ITCHY EYES- OK w/ po
polymyxin B - Burning of eyes
eye drops
Height / Weight:
Height 4 ft 7 in
Actual Weight 45.767 kg
- Vital Signs / Lab Results
Temp Pulse Resp BP Pulse Ox
98.1 F 81 13 140/70 98
03/31/24 03:39 03/31/24 03:39 03/31/24 03:39 03/31/24 03:39 03/31/24 03:39
Lab Results - Hematology
03/30/24 03/31/24
17:51 06:51
WBC 16.8 H 12.2 H
Lab Results - Chemistry
03/30/24 03/31/24
17:51 06:51
BUN 56 H 43 H
Creatinine 1.3 H 1.0
Estimated Creat Clear 27
Albumin 3.5 3.2 L
03/30/24
19:35
Lactic Acid 1.2
Therapeutic Drug Monitoring
Random Vancomycin 12.7 ug/ml 03/31/24 06:51
--- NOTE | 2024-03-31 08:48 | W.PN.HOSP.TC ---
Today's Communication/Plan
-
Continue IV antibiotics.
Assessment / Plan
Assessment / Plan
Physical exam:
General: Well Developed, Well Nourished and No Apparent Distress
HEENT: Normocephalic, Atraumatic and Moist Mucous Membranes
Respiratory: Clear to Auscultation; Negative Wheezes, Rales or Rhonchi
Cardiac: Regular Rhythm and S1/S2
GI: Soft, Nontender and Nondistended
Musculoskeletal: No Clubbing, No Cyanosis and No Edema
Neuro: Awake, Alert and Oriented
Psych: Calm
A/P:
Right lower extremity cellulitis:
Continue IV vancomycin
Follow-up trough levels of antibiotic to avoid toxicity.
Patient tells me she has tolerated Keflex in the past. She does confirm penicillin allergy.
On review of her records, she has definitely tolerated cephalosporins in the past.
Follow-up blood cultures
PT OT eval
Right Achilles open wound:
Wound care
Follow-up wound culture but would be cautious on interpretation since no active signs of infection
Hyperkalemia:
Resolved
Continue hold ARB and potassium supplement
JACI:
Improved with hydration
Stop IV fluids and encourage oral intake
Hyponatremia:
Improved with hydration as well
Elevated LFTs:
Improving
Hypotension:
Likely volume depletion and medications related
Resolved
Chronic HFpEF:
Holding diuretics
Monitor volume status
CVA in the past:
Continue antiplatelets and statin
Hyperlipidemia:
Continue statins
Hypothyroidism:
Continue levothyroxine
Other medical problems:
IBS
Depression anxiety
Chronic iron deficiency anemia
GERD
Insomnia
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
Osteoporosis
Small bowel obstruction
Osteoarthritis
Constipation
Mitral regurgitation
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
Chronic blepharitis
DVT prophylaxis:
Heparin SQ
CODE STATUS:
Full code
Total time spent on today's encounter was 52 minutes which included time spent in counseling the patient/family regarding diagnosis and treatment plan as listed above, goals of care, and symptom management. Case was discussed with nursing staff,
specialists, and care coordinators/case management. All labs and imaging personally reviewed by me. Remainder the time spent in detailed review of previous records, lab data, imaging, and other medical provider documentation.
Anticipated Discharge: > 48 hours
Subjective/Interval History
-
Date of Service: March 31, 2024
Patient feels improvement. Right lower extremity erythema receding. Afebrile
Objective Data
-
Labs:
Laboratory Results
03/31/24
06:51
WBC 12.2 H
Hgb 10.1 L
Hct 31.3 L
Plt Count 210
Sodium 138 D
Potassium 5.1
Chloride 102
Carbon Dioxide 24
BUN 43 H
Creatinine 1.0
Glucose 96
Calcium 8.5
Total Bilirubin 0.2
AST 34
ALT 51 H
Alkaline Phosphatase 91
Vital Signs:
Vital Signs
Temp Pulse Resp BP Pulse Ox
97.9 F 75 16 150/65 99
03/31/24 08:29 03/31/24 08:29 03/31/24 08:29 03/31/24 08:29 03/31/24 08:29
[2024-03-31] MEDS: VANCOCIN HCL 500 MG 100 IV (10:07)
--- NOTE | 2024-03-31 10:51 | WOUNDNOTE ---
[facility] RN note: Patient admitted with right LE cellulitis
See H&P for complete history.
PMH: CHF, TIA, IBS, HTN. Fall and right femur fracture July 2023. Patient developed pressure injury to right Achilles from boot when healing from fracture. Patient following at [facility] and received a graft of right Achilles ' a few months
ago.' Patient sees Dr. Hair weekly and uses a collagen dressing. Patient noticed symptoms of RLE cellulitis 03/30.
Wound Location and type/assessment: Patient admitted with healing right Achilles graft site. The site is clean appearing, with pink/white wound bed. Patient denies pain. Patient turns easily in bed and keeps heels off-loaded while in bed.
Appetite: Good. Supplements with protein shake daily.
Pressure redistribution devices in place: [employer] Accumax
Plan: Wound cleaned and adaptic and ABD applied. Patient has appointment to follow up with Dr. Hair on 04/06 and will resume collagen treatment when she gets home. Will confirm orders with hospitalist and update nurse. Updated care plan and will
follow as needed.
[2024-03-31] MEDS: NSS 1000 IV (12:09)
--- NOTE | 2024-03-31 12:10 | WOUNDNOTE ---
RIGHT ACHILLES GRAFT SITE
[2024-03-31] MEDS: LIPITOR 80 MG PO (16:59)
[2024-03-31] MEDS: ELAVIL 50 MG PO (22:00)
[2024-03-31] MEDS: TOBRADEX EYE 1 APPLIC BOTH EYES (22:01)
[2024-04-01] VITALS (9 sets, daily range): BP systolic 124–219; BP diastolic 62–106; PULSE 93; BMI 23.7
[2024-04-01] MEDS: HEPARIN 5000 UNITS SC ×3 (00:10→15:52)
[2024-04-01] MEDS: TRANDATE 5 MG IV ×2 (03:14→05:33)
[2024-04-01] MEDS: ProAIR HFA INHALER 1 PUFF INH (05:23)
[2024-04-01] MEDS: SYNTHROID 25 MCG PO (05:33)
[2024-04-01] MEDS: COZAAR 100 MG PO (05:46)
[2024-04-01 06:44] LABS: % Basophils 0.1 % (0-2); % Eosinophils 1.7 % (0-6); % Immature Granulocytes 0.6 % (0-0.5); % Lymphocytes 10.1 % (20.5-51.1); % Monocytes 8.4 % (1.7-9.3); % Neutrophils 79.1 % (42.2-75.2); Absolute Eosinophils 0.2 10^3/uL (0-0.7); Absolute Immature Granulocytes 0.1 10^3/uL (0-0.05); Absolute Monocytes 0.8 10^3/uL (0.1-0.6); Absolute Neutrophils 7.7 10^3/uL (1.4-6.5); Hematocrit 32.7 % (37.0-47.0); Hemoglobin 10.5 g/dL (12.0-16.0); Mean Corp Hgb Conc. 32.1 g/dL (33.0-37.0); Mean Corpuscular Hgb 29.2 pg (27.0-31.0); Mean Corpuscular Volume 91.1 fL (81.0-99.0); Mean Platelet Volume 9.9 fL (7.4-10.4); Nucleated Red Blood Cells % 0 %; Platelet Count 240 10^3/uL (130-400); Red Blood Cell Count 3.59 10^6/uL (4.20-5.40); Red Cell Dist. Width 16.2 % (11.5-14.5); White Blood Cell Count 9.7 10^3/uL (4.8-10.8)
[2024-04-01 07:03] LABS: Vancomycin Random 9.5 ug/ml
[2024-04-01 07:06] LABS: ALT (SGPT) 39 U/L (0-35); AST (SGOT) 30 U/L (14-36); Albumin 3.2 g/dl (3.5-5.0); Alkaline Phosphatase 93 U/L (38-126); Blood Urea Nitrogen 26 mg/dl (7-17); Calcium 8.5 mg/dl (8.4-10.2); Carbon Dioxide 22 mmol/L (22-30); Chloride 105 mmol/L (98-107); Estimated Creatinine Clearance 39 ml/min; Glucose 99 mg/dl (70-99); Potassium 4.8 mmol/L (3.5-5.1); Sodium 137 mmol/L (135-145); Total Bilirubin 0.2 mg/dl (0.2-1.3); Total Protein 5.6 g/dl (6.3-8.2); eGFR > 60.00
--- NOTE | 2024-04-01 08:36 | PHA.VAN.FU ---
Vancomycin Assessment / Plan
- Assessment
Renal Function: SCR Decreasing
WBC's are: Trending Down
In the past 24 hrs, patient has been: Afebrile
- Assessment - Therapeutic Drug Monitoring
Random Level: 9.5 - drawn ~20H after previous dose of 500mg
- Dosing Plan
Dosing by Level: Re-dose today (Vanc 750mg)
Since level decreased with 500mg, will give increased dosing of 750mg x1 today
Utilizing current estimated CrCl (39 ml/min) in [facility]:
Vanc 750mg Q24H predicts AUC 645, trough 17.1
Vanc 500mg Q24H predicts AUC 430, trough 11.4
CrCl is calculated using IBW 34kg and adjusted body weight 39kg with height < 5 ft --> expect this underestimates patient's true CrCl
Utilizing CrCl with patient's actual body weight (46 kg):
Vanc 750mg Q24H predicts AUC 570, trough 14.1
Vanc 500mg Q24H predicts AUC 380, trough 9.4
CrCl is ~45 ml/min
Based on level trend day, suspect patient may require 750mg and CrCl 39 ml/min is underestimated from true value
However, will keep dose by level for today so can trend
- Monitoring Plan
Random Level: 04/02 0600
- Follow Up
Pharmacy will continue to follow.
Vancomycin Follow UP
- -
Patient Age: 83
Patient Sex: Female
Vancomycin Day #: 3
Indication: Skin And Soft Tissue
Requesting Provider: Quique Christianson
Pertinent Antimicrobial Allergies:
Penicillins -throat swelling sensation while on Augmentin
Tolerated cephalosporin.
erythromycin base - Burning, itchy eyes
ERYTHROMYCIN OPH OINT GIVES BURNING, ITCHY EYES- OK w/ po
polymyxin B - Burning of eyes
eye drops
Height / Weight:
Height 4 ft 7 in
Actual Weight 46.323 kg
Pertinent Past Medical History: BMI ~24
- Vital Signs / Lab Results
Temp Pulse Resp BP Pulse Ox
99.1 F 71 16 219/106 98
04/01/24 08:23 04/01/24 08:23 04/01/24 08:23 04/01/24 08:23 04/01/24 08:23
Lab Results - Hematology
03/30/24 03/31/24 04/01/24
17:51 06:51 06:13
WBC 16.8 H 12.2 H 9.7
Lab Results - Chemistry
03/30/24 03/31/24 04/01/24
17:51 06:51 06:13
BUN 56 H 43 H 26 H
Creatinine 1.3 H 1.0 0.7
Estimated Creat Clear 27 39
Albumin 3.5 3.2 L 3.2 L
03/30/24
19:35
Lactic Acid 1.2
Microbiology Results
03/30/24 19:35 Blood Culture - Preliminary
Blood/Venous No Growth in 24 hours- Final report to follow
03/30/24 19:35 Gram Stain - Preliminary
Leg - Right
Therapeutic Drug Monitoring
Random Vancomycin 9.5 ug/ml 04/01/24 06:13
--- NOTE | 2024-04-01 08:40 | W.PN.HOSP.TC ---
Today's Communication/Plan
-
Antibiotics.
Assessment / Plan
Assessment / Plan
Physical exam:
General: Well Developed, Well Nourished and No Apparent Distress
HEENT: Normocephalic, Atraumatic and Moist Mucous Membranes
Respiratory: Clear to Auscultation; Negative Wheezes, Rales or Rhonchi
Cardiac: Regular Rhythm and S1/S2
GI: Soft, Nontender and Nondistended
Musculoskeletal: Right lower extremity erythema improving. Open wound in Achilles area healing. No Clubbing, No Cyanosis and some edema
Neuro: Awake, Alert and Oriented
Psych: Calm
A/P:
Right lower extremity cellulitis:
Continue IV vancomycin
Follow-up trough levels of antibiotic to avoid toxicity.
Patient tells me she has tolerated Keflex in the past. She does confirm penicillin allergy.
On review of her records, she has definitely tolerated cephalosporins in the past.
Patient also tells me that she has a follow-up with her surgeon for Achilles wound this coming Thursday. I encouraged her to keep this appointment.
Blood cultures no growth
PT OT eval
Right Achilles open wound:
Wound care
Follow-up wound culture but would be cautious on interpretation since no clear active signs of infection
Wound cultures with Staph aureus and gram-negative bacilli
Patient also tells me that she has a follow-up with her surgeon for Achilles wound this coming Thursday. I encouraged her to keep this appointment.
HTN urgency:
Uncontrolled today-->resume her meds that were on hold due to JACI and electrolyte abnormalities and give some IV meds in between
Blood pressure as high as 219/106 and it has come down to 159/84 after meds
Patient on labetalol 450 mg twice a day and losartan 100 mg daily
Continue monitor blood pressure closely
Anxiety:
Resume benzodiazepines to avoid withdrawal
Hyperkalemia:
Resolved
Resume ARB
Continue to hold potassium supplement
JACI:
Improved with hydration
Off IV fluids
Hyponatremia:
Improved with hydration as well
Elevated LFTs:
Improving
Hypotension:
Likely volume depletion and medications related
Resolved
Chronic HFpEF:
Will resume diuretics specially torsemide 40 mg daily and continue hold metolazone
Monitor volume status
CVA in the past:
Continue antiplatelets and statin
Hyperlipidemia:
Continue statins
Hypothyroidism:
Continue levothyroxine
Other medical problems:
IBS
Depression anxiety
Chronic iron deficiency anemia
GERD
Insomnia
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
Osteoporosis
Small bowel obstruction
Osteoarthritis
Constipation
Mitral regurgitation
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
Chronic blepharitis
DVT prophylaxis:
Heparin SQ
CODE STATUS:
Full code
Total time spent on today's encounter was 52 minutes which included time spent in counseling the patient/family regarding diagnosis and treatment plan as listed above, goals of care, and symptom management. Case was discussed with nursing staff,
specialists, and care coordinators/case management. All labs and imaging personally reviewed by me. Remainder the time spent in detailed review of previous records, lab data, imaging, and other medical provider documentation.
Anticipated Discharge: 24 - 48 hours
Subjective/Interval History
-
Date of Service: April 01, 2024
Patient erythema improving. Afebrile
Objective Data
-
Labs:
Laboratory Results
04/01/24
06:13
WBC 9.7
Hgb 10.5 L
Hct 32.7 L
Plt Count 240
Sodium 137
Potassium 4.8
Chloride 105
Carbon Dioxide 22
BUN 26 H
Creatinine 0.7
Glucose 99
Calcium 8.5
Total Bilirubin 0.2
AST 30
ALT 39 H
Alkaline Phosphatase 93
Vital Signs:
Vital Signs
Temp Pulse Resp BP Pulse Ox
99.1 F 71 16 219/106 98
04/01/24 08:23 04/01/24 08:23 04/01/24 08:23 04/01/24 08:23 04/01/24 08:23
I&O
03/31/24 04/01/24 04/02/24
06:59 06:59 06:59
Intake Total 1680 / 1680
Balance 1680 / 1680
[2024-04-01] MEDS: APRESOLINE 10 MG IV (09:02)
[2024-04-01] MEDS: NEURONTIN 300 MG PO ×2 (09:07→21:33)
[2024-04-01] MEDS: ASPIR LOW (ENTERIC COATED) 81 MG PO (09:07)
[2024-04-01] MEDS: FEOSOL 325 MG PO (09:08)
[2024-04-01] MEDS: PEPCID 20 MG PO (09:08)
[2024-04-01] MEDS: VITAMIN D3 (cholecalciferol) 25 MCG PO (09:08)
[2024-04-01] MEDS: PROTONIX 40 MG PO (09:08)
[2024-04-01] MEDS: OSCAL 500 + D 500 MG PO ×2 (09:08→21:33)
[2024-04-01] MEDS: VITAMIN B-12 1000 MCG PO (09:09)
[2024-04-01] MEDS: MIRALAX 17 GRAMS PO (09:11)
--- NOTE | 2024-04-01 10:46 | CM ---
Patient seen bedside
Patients 2 sons live with her in a multilevel home.
3 steps to enter, 12 steps to second floor.
Patient had a femur dx in September went to [facility].
Had [facility] once she returned home, not current with them at this time.
Patient independent at home.
Denies home care needs at this time.
Son will transport home.
Denies insecurities at home.
PCP: Dr Kacey Rogers
Pharmacy: [facility] ([facility])
Plan: home with sons, denies [facility]N needs.
[2024-04-01] MEDS: VANCOCIN 150 IV (10:54)
[2024-04-01] MEDS: NORCO 7.5/325 1 TABLET PO ×3 (10:55→21:41)
[2024-04-01] MEDS: XANAX 0.25 MG PO ×2 (14:15→21:33)
[2024-04-01] MEDS: DEMADEX 40 MG PO (14:15)
[2024-04-01] MEDS: LIPITOR 80 MG PO (17:42)
[2024-04-01] MEDS: ELAVIL 50 MG PO (21:33)
[2024-04-01] MEDS: TOBRADEX EYE 1 APPLIC BOTH EYES (21:33)
[2024-04-01] MEDS: TRANDATE 450 MG PO (21:33)
[2024-04-02] MEDS: HEPARIN 5000 UNITS SC ×2 (00:44→08:14)
[2024-04-02 03:54] VITALS: BP 148/82
[2024-04-02 06:00] VITALS: BMI 23.5
[2024-04-02] MEDS: SYNTHROID 25 MCG PO (06:29)
[2024-04-02 07:00] VITALS: BP 171/77
[2024-04-02 07:41] LABS: % Basophils 0.1 % (0-2); % Eosinophils 2.4 % (0-6); % Immature Granulocytes 1.4 % (0-0.5); % Lymphocytes 15.6 % (20.5-51.1); % Monocytes 9.6 % (1.7-9.3); % Neutrophils 70.9 % (42.2-75.2); Absolute Eosinophils 0.2 10^3/uL (0-0.7); Absolute Immature Granulocytes 0.1 10^3/uL (0-0.05); Absolute Lymphocytes 1.3 10^3/uL (1.2-3.4); Absolute Monocytes 0.8 10^3/uL (0.1-0.6); Absolute Neutrophils 5.7 10^3/uL (1.4-6.5); Hematocrit 31.9 % (37.0-47.0); Hemoglobin 10.2 g/dL (12.0-16.0); Mean Corpuscular Hgb 28.7 pg (27.0-31.0); Mean Corpuscular Volume 89.9 fL (81.0-99.0); Mean Platelet Volume 9.7 fL (7.4-10.4); Nucleated Red Blood Cells % 0 %; Platelet Count 250 10^3/uL (130-400); Red Blood Cell Count 3.55 10^6/uL (4.20-5.40); Red Cell Dist. Width 16.2 % (11.5-14.5)
[2024-04-02 07:43] LABS: Vancomycin Random 12.9 ug/ml
[2024-04-02 08:07] LABS: ALT (SGPT) 31 U/L (0-35); AST (SGOT) 21 U/L (14-36); Albumin 3.1 g/dl (3.5-5.0); Alkaline Phosphatase 89 U/L (38-126); Blood Urea Nitrogen 27 mg/dl (7-17); Calcium 8.5 mg/dl (8.4-10.2); Carbon Dioxide 24 mmol/L (22-30); Chloride 101 mmol/L (98-107); Estimated Creatinine Clearance 34 ml/min; Glucose 98 mg/dl (70-99); Potassium 4.7 mmol/L (3.5-5.1); Sodium 136 mmol/L (135-145); Total Bilirubin 0.2 mg/dl (0.2-1.3); Total Protein 5.4 g/dl (6.3-8.2); eGFR > 60.00
[2024-04-02] MEDS: PROTONIX 40 MG PO (08:12)
[2024-04-02] MEDS: NEURONTIN 300 MG PO (08:12)
[2024-04-02] MEDS: MIRALAX 17 GRAMS PO (08:12)
[2024-04-02] MEDS: DEMADEX 40 MG PO (08:12)
[2024-04-02] MEDS: TRANDATE 450 MG PO (08:13)
[2024-04-02] MEDS: PEPCID 20 MG PO (08:13)
[2024-04-02] MEDS: VITAMIN B-12 1000 MCG PO (08:13)
[2024-04-02] MEDS: COZAAR 100 MG PO (08:13)
[2024-04-02] MEDS: XANAX 0.25 MG PO (08:13)
[2024-04-02] MEDS: OSCAL 500 + D 500 MG PO (08:14)
[2024-04-02] MEDS: ASPIR LOW (ENTERIC COATED) 81 MG PO (08:14)
[2024-04-02] MEDS: VITAMIN D3 (cholecalciferol) 25 MCG PO (08:14)
[2024-04-02] MEDS: FEOSOL 325 MG PO (08:14)
[2024-04-02] MEDS: NORCO 7.5/325 1 TABLET PO (08:26)
--- NOTE | 2024-04-02 09:15 | PHA.VAN.FU ---
Vancomycin Assessment / Plan
- Assessment
Renal Function: SCR Decreasing (1.3->1.0->0.8)
WBC's are: WNL
In the past 24 hrs, patient has been: Afebrile
Concomitant Antimicrobials: none
- Assessment - Therapeutic Drug Monitoring
Random Level: 12.9 (~ 19 hours after 750 mg dose yesterday)
- Dosing Plan
Continue: dose by random level
Dosing by Level: Re-dose today (750 mg x 1)
Dosing Comments: continue dose by random with 750 mg x 1 before conisder scheduling
- Monitoring Plan
Random Level: repeat random level am 04/03
- Follow Up
Pharmacy will continue to follow.
Vancomycin Follow UP
- -
Patient Age: 83
Patient Sex: Female
Vancomycin Day #: 4
Indication: Skin And Soft Tissue
Requesting Provider: Quique Christianson
Pertinent Antimicrobial Allergies:
Penicillins -throat swelling sensation while on Augmentin
Tolerated cephalosporin.
erythromycin base - Burning, itchy eyes
ERYTHROMYCIN OPH OINT GIVES BURNING, ITCHY EYES- OK w/ po
polymyxin B - Burning of eyes
eye drops
Height / Weight:
Height 4 ft 7 in
Actual Weight 45.87 kg
Pertinent Past Medical History: BMI ~24
- Vital Signs / Lab Results
Temp Pulse Resp BP Pulse Ox
98.1 F 87 16 171/77 98
04/02/24 07:00 04/02/24 07:00 04/02/24 07:00 04/02/24 07:00 04/02/24 07:00
Lab Results - Hematology
03/30/24 03/31/24 04/01/24
17:51 06:51 06:13
WBC 16.8 H 12.2 H 9.7
04/02/24
06:48
WBC 8.0
Lab Results - Chemistry
03/30/24 03/31/24 04/01/24
17:51 06:51 06:13
BUN 56 H 43 H 26 H
Creatinine 1.3 H 1.0 0.7
Estimated Creat Clear 27 39
Albumin 3.5 3.2 L 3.2 L
04/02/24
06:48
BUN 27 H
Creatinine 0.8
Estimated Creat Clear 34
Albumin 3.1 L
03/30/24
19:35
Lactic Acid 1.2
Microbiology Results
03/30/24 19:35 Wound Culture - Preliminary
Leg - Right S aureus-Methicillin Sensitive
Pseudomonas aeruginosa
Gram Stain - Preliminary
03/30/24 19:35 Blood Culture - Preliminary
Blood/Venous No Growth in 48 hours- Final report to follow
03/31/24 05:33 MRSA Screen - Final
Nose No Methicillin Resistant Staphylococcus aureus isolated.
Therapeutic Drug Monitoring
Random Vancomycin 12.9 ug/ml 04/02/24 06:48
--- NOTE | 2024-04-02 09:25 | W.PN.HOSP.TC ---
Today's Communication/Plan
-
Discharge planning.
Assessment / Plan
Assessment / Plan
Physical exam:
General: Well Developed, Well Nourished and No Apparent Distress
HEENT: Normocephalic, Atraumatic and Moist Mucous Membranes
Respiratory: Clear to Auscultation; Negative Wheezes, Rales or Rhonchi
Cardiac: Regular Rhythm and S1/S2
GI: Soft, Nontender and Nondistended
Musculoskeletal: Right lower extremity erythema resolved. Open wound in Achilles area healing appropriately. No Clubbing, No Cyanosis and some edema
Neuro: Awake, Alert and Oriented
Psych: Calm
A/P:
Right lower extremity cellulitis:
Continue IV vancomycin and switch to oral Keflex today.
ID consult--> discussed with ID and no need to treat wound culture results and okay to go on Keflex for very short course. ID cleared her for discharge.
Follow-up trough levels of antibiotic to avoid toxicity.
Patient tells me she has tolerated Keflex in the past. She does confirm penicillin allergy.
On review of her records, she has definitely tolerated cephalosporins in the past.
Patient also tells me that she has a follow-up with her surgeon for Achilles wound this coming Thursday. I encouraged her to keep this appointment.
Blood cultures no growth
WBC 12.2--> 8
PT OT eval
Planning to discharge today
Right Achilles open wound:
Wound care
Follow-up wound culture but would be cautious on interpretation since no clear active signs of infection
Wound cultures with Staph aureus, Pseudomonas, Enterococcus.
Patient also tells me that she has a follow-up with her surgeon for Achilles wound this coming Thursday. I encouraged her to keep this appointment.
HTN urgency:
Improved after back on her medications
Prior to today:
Uncontrolled-->resume her meds that were on hold due to JACI and electrolyte abnormalities and give some IV meds in between
Blood pressure as high as 219/106 and it has come down to 159/84 after meds
Patient on labetalol 450 mg twice a day and losartan 100 mg daily
Continue monitor blood pressure closely
Anxiety:
Resume benzodiazepines to avoid withdrawal
Hyperkalemia:
Resolved
Resume ARB
Continue to hold potassium supplement
JACI:
Improved with hydration
Off IV fluids
Hyponatremia:
Improved with hydration as well
Elevated LFTs:
Improving
Hypotension:
Likely volume depletion and medications related
Resolved
Chronic HFpEF:
Will resume diuretics specially torsemide 40 mg daily and continue hold metolazone
Monitor volume status
CVA in the past:
Continue antiplatelets and statin
Hyperlipidemia:
Continue statins
Hypothyroidism:
Continue levothyroxine
Other medical problems:
IBS
Depression anxiety
Chronic iron deficiency anemia
GERD
Insomnia
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
Osteoporosis
Small bowel obstruction
Osteoarthritis
Constipation
Mitral regurgitation
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
Chronic blepharitis
DVT prophylaxis:
Heparin SQ
CODE STATUS:
Full code
Anticipated Discharge: Today
Subjective/Interval History
-
Date of Service: April 02, 2024
No new complaints. Erythema and tenderness almost completely gone. Afebrile
Objective Data
-
Labs:
Laboratory Results
04/02/24
06:48
WBC 8.0
Hgb 10.2 L
Hct 31.9 L
Plt Count 250
Sodium 136
Potassium 4.7
Chloride 101
Carbon Dioxide 24
BUN 27 H
Creatinine 0.8
Glucose 98
Calcium 8.5
Total Bilirubin 0.2
AST 21
ALT 31
Alkaline Phosphatase 89
Vital Signs:
Vital Signs
Temp Pulse Resp BP Pulse Ox
98.1 F 87 16 171/77 98
04/02/24 07:00 04/02/24 07:00 04/02/24 07:00 04/02/24 07:00 04/02/24 07:00
I&O
04/01/24 04/02/24 04/03/24
06:59 06:59 06:59
Intake Total 1680 / 1680 2480 / 2480
Balance 1680 / 1680 2480 / 2480
[2024-04-02] MEDS: VANCOCIN 150 IV (10:01)
[2024-04-02 11:00] VITALS: BP 111/55
[2024-04-02 11:39] VITALS: BP 113/58; PULSE 74; O2SAT 100
--- NOTE | 2024-04-02 12:29 | CON.ID ---
Consultation
-
Date/Time Consultation Requested: 04/02/2024 0945
Date/Time Consultation Performed: 04/02/2024 1220
Requesting Provider: Dr. Moore
Performing Provider: Dr. Espinoza
Reason for Consultation: Right lower extremity Achilles tendon infection
Chief Complaint / Past History
History of Present Illness
Amalia Mera is an 83-year-old female being evaluated at the request of Dr. Moore in regards to a right Achilles tendon area wound. History is obtained from chart review, along with patient interview.
The patient reports that in July of this year she sustained a right femoral fracture and [facility] Thereafter, she went to [facility] for rehab, and while there was in an immobilizer. While wearing the immobilizer, she
believed she developed a wound in the right Achilles tendon area. She was followed by wound care at [facility], but then was subsequently transitioned to evaluation by plastic surgery who ultimately placed a split-thickness skin graft
approximately 2 weeks ago. Over the past week she has noted some increasing right lower extremity swelling, and also noted it to be in the mid thigh. She notes that around the same time she received a right knee steroid injection, along with
steroid injections to her bilateral shoulders. She has developed some increasing swelling of the lower extremity along with noted erythema, and ultimately was sent into the hospital for further evaluation.
She denies any specific leg pain. She has been followed closely by her plastic surgeon who feels that the graft is taking. She notes that the erythema of her leg seen 48 hours ago is no longer present.
Past History
Additional Past Medical History:
CHF
Hx CVA
GERD
HTN
Dyslipidemia
Valvular disease (mitral regurgitation)
Hypothyroidism
Spinal stenosis
Disc herniation; lumbar region
IBS
Osteoarthritis
Additional Past Surgical History:
Small bowel resection
Cholecystectomy
Hysterectomy
Lumbar laminectomy
Hemorrhoidectomy
Left endarterectomy
Allergy History:
adhesive Allergy (Verified 03/30/24 17:43)
Rash
erythromycin base [Erythromycin Base] Allergy (Verified 03/30/24 17:43)
Burning, itchy eyes
mold Allergy (Verified 03/30/24 17:43)
ITCHY EYES
Penicillins Allergy (Verified 03/30/24 17:43)
throat swelling sensation while on Augmentin
pollen extracts Allergy (Verified 03/30/24 17:43)
seasonal-ITCHY EYES,RUNNY NOSE
polymyxin B Allergy (Verified 03/30/24 17:43)
Burning of eyes
Medications Reviewed: Yes
Current Antibiotics:
Vancomycin
Social History
Tobacco: Non-Smoker
Alcohol: None
Drug: None
Personal: Single
Living: With Family
Employment: Retired
Family History
Family History: Not Pertinent
Review of Systems
Vital Signs
Temp Pulse Resp BP Pulse Ox
97.7 F 75 16 111/55 98
04/02/24 11:00 04/02/24 11:00 04/02/24 11:00 04/02/24 11:00 04/02/24 11:00
Physical Exam
Physical Exam
Constitutional: No Acute Distress, Comfortable, Chronically Ill and Cachetic (mild)
Head: Normocephalic
Eyes: Pupils Equal, Pupils Round, No Conjunctival Hemorrhage and Sclera Anicteric
Oral: No Thrush and No Ulcers
Cardiovascular: Regular Rate and S1/S2; Negative S3/S4
Pulmonary: Clear; Negative Wheezes or Rales
Extremities: Edema (3+ RLE) and Erythema (mild, without significant warmth)
Neurological: Awake and Alert
Psychological: Calm
.
Lab / Diagnostic Study Results
04/02/24 06:48
04/02/24 06:48
Abs Immat Gran (auto) 0.1 10^3/uL (0-0.05) H 04/02/24 06:48
Absolute Neuts (auto) 5.7 10^3/uL (1.4-6.5) 04/02/24 06:48
Absolute Lymphs (auto) 1.3 10^3/uL (1.2-3.4) 04/02/24 06:48
Absolute Monos (auto) 0.8 10^3/uL (0.1-0.6) H 04/02/24 06:48
Absolute Basos (auto) 0.0 10^3/uL (0-0.2) 04/02/24 06:48
Immature Gran % 1.4 % (0-0.5) H 04/02/24 06:48
Neutrophils % 70.9 % (42.2-75.2) 04/02/24 06:48
Lymphocytes % 15.6 % (20.5-51.1) L 04/02/24 06:48
Monocytes % 9.6 % (1.7-9.3) H 04/02/24 06:48
Eosinophils % 2.4 % (0-6) 04/02/24 06:48
Basophils % 0.1 % (0-2) 04/02/24 06:48
Lactic Acid 1.2 mmol/L (0.7-2.0) 03/30/24 19:35
Microbiology Results
Micro:
03/30/24 19:35 Wound Culture - Preliminary
Leg - Right S aureus-Methicillin Sensitive
Pseudomonas aeruginosa
Enterococcus species
Gram Stain - Preliminary
03/30/24 19:35 Blood Culture - Preliminary
Blood/Venous No Growth in 48 hours- Final report to follow
03/31/24 05:33 MRSA Screen - Final
Nose No Methicillin Resistant Staphylococcus aureus isolated.
Imaging:
03/30/2024 Duplex ultrasound right lower extremity: The right common femoral, femoral, popliteal, peroneal, and posterior tibial veins are patent. There is no sonographic evidence for deep venous thrombosis.
Assessment / Plan
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
- s/p recent split-thickness skin graft
Lower extremity erythema
-Current exam not consistent with cellulitis
CHF
Hx CVA
GERD
HTN
Dyslipidemia
Valvular disease (mitral regurgitation)
Hypothyroidism
Spinal stenosis
Disc herniation; lumbar region
IBS
Osteoarthritis
Recommendations:
Wound cultures reviewed, and polymicrobial growth would not be unexpected from a swab of a superficial wound.
At present, no clinical suggestion of SSTI given lack of significant tenderness and lack of significant warmth.
Transition to oral Keflex.
Continue with local care to the area (Adaptic, gauze, wrap). Would use Arturo wrap or Tubigrip to control overall edema.
Patient has been counseled on offloading the wound area approximately 2 hours out of every 6, along with elevation.
Continue follow-up with wound care/plastics.
Care Review
Plan reviewed with: Physician (Hospitalist)
--- NOTE | 2024-04-02 14:16 | W.DCSUMMARY ---
Discharge Summary
Discharge Data
Date of Admission: 03/30/24
Date of Discharge: 04/02/24
-
Pending Results: No
Hospital Course
Patient 83 years old female with history of CVA, CAD, CHF, hypertension, hyperlipidemia, valvulopathy, hypothyroidism, spinal stenosis, IBS, history of right femoral fracture and after immobilizer developed right Achilles tendon wound has been cared
as outpatient who did a split-thickness skin graft recently, came into the hospital right lower extremity erythema swelling and pain consistent with acute right lower extremity cellulitis. She was treated with IV vancomycin due to her multiple
allergies. Her erythema resolved. Her white blood cell count was 12.2 and it went down to normal 8 after treatment. Patient also had mild JACI with creatinine 1.3 and responded to IV fluids and creatinine went down to 0.8. She also was mildly
hyperkalemic and responded to fluid and potassium and ARB were held. Blood pressure medications were held due to hypotension and JACI. Blood pressure increased to the level of hypertensive urgency and had to be restarted on all blood pressure
medications and some extra. Blood pressure back to her normal with her home regimen. She had some wound culture in the ED that grew methicillin sensitive Staph aureus, Pseudomonas, and Enterococcus. Blood cultures remained negative. ID
consulted. ID felt that wound culture is not indicative of infection and her cellulitis is improved and she can be switched to oral antibiotics. ID cleared her for discharge. PT OT worked with her during this hospital stay. She has an
appointment with her plastic surgery as outpatient this coming week. She is going to be discharged in stable condition today.
Discharge duration: 35 minutes
Discharge Plan
-
Patient Disposition: Home (Routine Discharge)
Discharge Diagnosis/Procedures: Cellulitis left lower extremity. Achilles wound. Hypertensive urgency. Hyperkalemia resolved. Acute kidney injury resolved. Hyponatremia. Chronic diastolic congestive heart failure. History of stroke.
Diet: Low Cholesterol
Activity: As tolerated
Blood Work: Please PCP to order CBC, BMP within 1 week
Activity Restrictions/Additional Instructions:
Wound Care Instructions Resume wound care as ordered by Dr. Hair. Follow up with Dr. Hair as scheduled on 04/06.
Referrals:
Hebert Rogers MD [Family Provider] - in less than 1 week
Prescriptions:
New
cephalexin 500 mg Capsule
500 mg PO TID 3 Days Qty: 9 0RF
Continued
famotidine 40 MG tablet
40 mg PO DAILY
aspirin 81 MG tablet,delayed release (DR/EC)
81 mg PO DAILY
amitriptyline 50 MG tablet
50 mg PO HS
alprazolam 0.25 MG tablet
0.25 mg PO BID
Patient Comments:
1-2X DAY
pantoprazole 40 MG tablet,delayed release (DR/EC)
40 mg PO DAILY
labetalol 300 MG tablet
450 mg PO BID
Patient Comments:
1-2X DAY
losartan [Cozaar] 100 MG tablet
100 mg PO DAILY
gabapentin 300 MG capsule
300 mg PO TID
polyethylene glycol 3350 17 GRAMS powder in packet
17 grams PO DAILY
levothyroxine 25 MCG capsule
25 mcg PO DAILY AT 0700
cyanocobalamin (vitamin B-12) 1,000 MCG tablet
1,000 mcg PO DAILY
ferrous sulfate [Feosol] 325 MG tablet
325 mg PO DAILY
metolazone 2.5 mg Tablet
2.5 mg PO WE
atorvastatin [Lipitor] 80 mg Tablet
80 mg PO QPM
torsemide 20 mg Tablet
40 mg PO DAILY
hydrocodone-acetaminophen 10-325 mg Tablet
1 tab PO TIDPRN PRN (Reason: severe pain)
cholecalciferol (vitamin D3) [Vitamin D3] 25 mcg (1,000 unit) Tablet
25 mcg PO DAILY
potassium chloride 20 mEq Tablet Extended Release
20 meq PO DAILY
TobraDex 0.3-0.1 % ointment
0.25 inch BOTH EYES HS
fluticasone propionate 50 mcg/actuation spray,suspension
2 spray INTRANASAL DAILY
tobramycin-dexamethasone 0.3-0.1 % drops,suspension
1 drp BOTH EYES Q48H PRN (Reason: infection)
calcium citrate-vitamin D3 [Citracal + D Maximum] 315 mg-6.25 mcg (250 unit) Tablet
1 tab PO BID
Silver Collagen patch
1 patch topical Q48H
Patient Comments:
03/30/2024: Pt had skin graft by Dr Hair to right lower leg (by the achilles tendon). Pt didn't get to office today, PCP changed with Antibactrical ointment and wrap before coming to ED.
Discontinued
cephalexin 500 mg capsule
500 mg PO TID
Discharge Orders:
Discharge Patient (As Directed); Ordered 04/02/24
Ordered By: Cesar Moore
Discharge Date and Time
Discharge Date/Time: 04/02/24 16:08
Print Language: FRENCH
[2024-04-02 15:00] VITALS: BP 109/68
[2024-04-02] MEDS: KEFLEX 500 MG PO (15:35)
[2024-04-02] MEDS: HEPARIN SC (15:35)
== END 2024-04-02 16:08 | disposition home or self-care (01) | DRG 603 ==
LOC: 3 WEST ACU 22:14
PROVIDERS: Clinical Nurse Specialist Family Health; Emergency Medicine; Nurse Practitioner; ADMITTING PHYSICIAN Hospitalist; ATTENDING PHYSICIAN Hospitalist; CONSULT PHYSICIAN Internal Medicine Infectious Disease; EMERGENCY PHYSICIAN Emergency Medicine; FAMILY PHYSICIAN Internal Medicine
DX: L03.115 Cellulitis of right lower limb (principal); N17.9 Acute kidney failure, unspecified; E87.1 Hypo-osmolality and hyponatremia; I50.32 Chronic diastolic (congestive) heart failure; I16.0 Hypertensive urgency; E87.5 Hyperkalemia; Z86.73 Personal history of transient ischemic attack (TIA), and cerebral infarction without residual deficits; E03.9 Hypothyroidism, unspecified; I11.0 Hypertensive heart disease with heart failure; K21.9 Gastro-esophageal reflux disease without esophagitis; M19.90 Unspecified osteoarthritis, unspecified site; M48.00 Spinal stenosis, site unspecified; I34.0 Nonrheumatic mitral (valve) insufficiency; K58.9 Irritable bowel syndrome, unspecified; E78.00 Pure hypercholesterolemia, unspecified; Z90.710 Acquired absence of both cervix and uterus; Z90.49 Acquired absence of other specified parts of digestive tract; F32.A Depression, unspecified; F41.9 Anxiety disorder, unspecified; G47.00 Insomnia, unspecified; R35.0 Frequency of micturition; M81.0 Age-related osteoporosis without current pathological fracture; H01.009 Unspecified blepharitis unspecified eye, unspecified eyelid; E05.90 Thyrotoxicosis, unspecified without thyrotoxic crisis or storm; M51.26 Other intervertebral disc displacement, lumbar region; I95.9 Hypotension, unspecified; K59.00 Constipation, unspecified; Z88.0 Allergy status to penicillin; Z79.82 Long term (current) use of aspirin; E86.9 Volume depletion, unspecified; D64.9 Anemia, unspecified; I25.10 Atherosclerotic heart disease of native coronary artery without angina pectoris; Z79.899 Other long term (current) drug therapy; S91.001A Unspecified open wound, right ankle, initial encounter; X58.XXXA Exposure to other specified factors, initial encounter
CPT/HCPCS: 80053; 80202; 83605; 85025; 87040; 87070; 87077; 87147; 87186; 87205; 93005; 93971; 94640; 96365; 96366; 97116; 97161; 97166; 97535; 99284

== ENCOUNTER → 2024-05-18 11:16 | Outpatient (REF) | payer MEDICARE, OTHER, SELFPAY ==
[2024-05-18 12:40] LABS: % Basophils 1.2 % (0-2); % Immature Granulocytes 0.4 % (0-0.5); % Lymphocytes 14.1 % (20.5-51.1); % Neutrophils 74.3 % (42.2-75.2); Absolute Basophils 0.1 10^3/uL (0-0.2); Absolute Eosinophils 0.2 10^3/uL (0-0.7); Absolute Monocytes 0.6 10^3/uL (0.1-0.6); Absolute Neutrophils 5.5 10^3/uL (1.4-6.5); Hematocrit 31.4 % (37.0-47.0); Hemoglobin 10.4 g/dL (12.0-16.0); Mean Corp Hgb Conc. 33.1 g/dL (33.0-37.0); Mean Corpuscular Hgb 30.5 pg (27.0-31.0); Mean Corpuscular Volume 92.1 fL (81.0-99.0); Mean Platelet Volume 9.9 fL (7.4-10.4); Nucleated Red Blood Cells % 0 %; Platelet Count 265 10^3/uL (130-400); Red Blood Cell Count 3.41 10^6/uL (4.20-5.40); Red Cell Dist. Width 14.9 % (11.5-14.5); White Blood Cell Count 7.4 10^3/uL (4.8-10.8)
[2024-05-18 14:20] LABS: ALT (SGPT) 18 U/L (0-35); AST (SGOT) 34 U/L (14-36); Albumin 3.8 g/dl (3.5-5.0); Alkaline Phosphatase 147 U/L (38-126); Blood Urea Nitrogen 34 mg/dl (7-17); Calcium 8.3 mg/dl (8.4-10.2); Carbon Dioxide 28 mmol/L (22-30); Chloride 96 mmol/L (98-107); Glucose 78 mg/dl (70-99); Potassium 5.5 mmol/L (3.5-5.1); Sodium 131 mmol/L (135-145); Total Bilirubin 0.4 mg/dl (0.2-1.3); Total Protein 6.1 g/dl (6.3-8.2); eGFR 56.25
== END ==
LOC: REG 11:16
PROVIDERS: ATTENDING PHYSICIAN Internal Medicine
DX: E87.1 Hypo-osmolality and hyponatremia (principal); D64.9 Anemia, unspecified
CPT/HCPCS: 36415; 80053; 85025

== ENCOUNTER → 2024-06-08 10:46 | Outpatient (REF) | payer MEDICARE, OTHER, SELFPAY ==
[2024-06-08 11:58] LABS: ALT (SGPT) 12 U/L (0-35); AST (SGOT) 24 U/L (14-36); Albumin 4.1 g/dl (3.5-5.0); Alkaline Phosphatase 113 U/L (38-126); Blood Urea Nitrogen 37 mg/dl (7-17); Calcium 9.4 mg/dl (8.4-10.2); Carbon Dioxide 28 mmol/L (22-30); Chloride 92 mmol/L (98-107); Glucose 102 mg/dl (70-99); Potassium 4.4 mmol/L (3.5-5.1); Sodium 131 mmol/L (135-145); Total Bilirubin 0.4 mg/dl (0.2-1.3); Total Protein 6.6 g/dl (6.3-8.2); eGFR 41.06
[2024-06-08 12:21] LABS: Erythrocyte Sed Rate 25 mm/hour (0-20)
[2024-06-09 15:01] LABS: Rheumatoid Agglutinin Less Than 10 IU (<10 IU)
[2024-06-09 22:20] LABS: ANA, IgG Reflex to HEp-2 None Detected (None Detected)
[2024-06-10 16:47] LABS: Lyme Antibody Screen, EIA Negative (Negative)
== END ==
LOC: REG 10:46
PROVIDERS: ATTENDING PHYSICIAN Internal Medicine; FAMILY PHYSICIAN Surgery
DX: M70.22 Olecranon bursitis, left elbow (principal); M19.90 Unspecified osteoarthritis, unspecified site; D64.9 Anemia, unspecified; E87.1 Hypo-osmolality and hyponatremia; E87.5 Hyperkalemia; R74.9 Abnormal serum enzyme level, unspecified
CPT/HCPCS: 36415; 80053; 85652; 86038; 86140; 86430; 86618

== ENCOUNTER → 2024-07-06 16:12 | Outpatient (REF) | payer MEDICARE, OTHER, SELFPAY ==
[2024-07-06 17:07] LABS: Body Fluid Mononuclear 34.1 %; Body Fluid Polymorphonuclear 65.9 %; Body Fluid WBC 2341 /CUMM
[2024-07-06 17:24] LABS: Body Fluid Second Tech EYM
== END ==
LOC: CLAB 16:12
PROVIDERS: ATTENDING PHYSICIAN Physician Assistant Surgical
DX: M70.22 Olecranon bursitis, left elbow (principal)
CPT/HCPCS: 87015; 87070; 87075; 87205; 89051; 89060

== ENCOUNTER → 2024-08-29 15:48 | Outpatient (REF) | payer MEDICARE, OTHER, SELFPAY ==
[2024-08-29 16:57] LABS: % Basophils 1.4 % (0-2); % Eosinophils 1.7 % (0-6); % Immature Granulocytes 0.3 % (0-0.5); % Lymphocytes 18.7 % (20.5-51.1); % Monocytes 11.5 % (1.7-9.3); % Neutrophils 66.4 % (42.2-75.2); Absolute Basophils 0.1 10^3/uL (0-0.2); Absolute Eosinophils 0.1 10^3/uL (0-0.7); Absolute Lymphocytes 1.2 10^3/uL (1.2-3.4); Absolute Monocytes 0.7 10^3/uL (0.1-0.6); Absolute Neutrophils 4.3 10^3/uL (1.4-6.5); Hematocrit 29.4 % (37.0-47.0); Hemoglobin 9.7 g/dL (12.0-16.0); Mean Corpuscular Hgb 30.3 pg (27.0-31.0); Mean Corpuscular Volume 91.9 fL (81.0-99.0); Mean Platelet Volume 9.8 fL (7.4-10.4); Nucleated Red Blood Cells % 0 %; Platelet Count 262 10^3/uL (130-400); Red Cell Dist. Width 13.8 % (11.5-14.5); White Blood Cell Count 6.5 10^3/uL (4.8-10.8)
== END ==
LOC: REG 15:48
PROVIDERS: ATTENDING PHYSICIAN Internal Medicine
DX: D64.9 Anemia, unspecified (principal)
CPT/HCPCS: 36415; 85025

== ENCOUNTER → 2024-09-06 16:10 | Outpatient (REF) | payer MEDICARE, OTHER, SELFPAY ==
[2024-09-06 16:44] LABS: Reticulocyte Count 2.3 % (0.4-2.8)
== END ==
LOC: REG 16:10
PROVIDERS: ATTENDING PHYSICIAN Internal Medicine
DX: D64.9 Anemia, unspecified (principal); M70.22 Olecranon bursitis, left elbow
CPT/HCPCS: 36415; 82728; 85045